=== PATIENT | male | born 1970 | race Two or more races ===

== ENCOUNTER 2021-09-26 18:38 | Inpatient (IN) | payer MEDICAID ==
[~2021-09-26] VITALS: Ht 172.7 cm; Wt 97.5 kg
[2021-09-26] MEDS ORDERED: ASPirin 81 mg TAB PO ONE (18:45)
[2021-09-26 19:45] LABS: Basophils # (auto) 0 10 ^3/uL (0-0.2); Basophils % (auto) 0.5 % (0.0-2.0); Eosinophils # (auto) 0.1 10 ^3/uL (0-0.8); Eosinophils % (auto) 1.6 % (0.0-7.0); Hematocrit 46.7 % (41.0-53.0); Hemoglobin 16.3 g/dL (13.5-17.5); Lymphocytes # (auto) 3.2 10 ^3/uL (0.4-5.4); Lymphocytes % (auto) 39.2 % (10.0-50.0); Mean Corpuscular Hgb Conc. 34.8 g/dL (32.0-36.0); Mean Corpuscular Volume 86.1 fL (80.0-100.0); Monocytes # (auto) 0.7 10 ^3/uL (0-1.3); Monocytes % (auto) 8.6 % (0.0-12.0); Neutrophils # (auto) 4.1 10 ^3/uL (1.6-8.6); Neutrophils % (auto) 50.1 % (37.0-80.0); Nucleated Red Blood Cells % 0.3 %; Red Blood Cells 5.43 10^6/uL (4.5-5.90); Red Cell Distribution Width 13.8 % (11.8-14.3); White Blood Cell 8.3 10^3/uL (4.4-10.8)
[2021-09-26 20:04] LABS: Albumin 3.6 g/dL (3.4-5.0); BUN/Creatinine Ratio 23.3; Calcium 8.6 mg/dL (8.5-10.1); Magnesium 2.6 mg/dL (1.6-2.6); Potassium 3.7 mmol/L (3.5-5.1)
[2021-09-26 20:07] LABS: Bilirubin, Total 0.2 mg/dL (0.2-1.0); Total Protein 7.1 g/dL (6.4-8.2)
[2021-09-26] MEDS ORDERED: ONDANSETRON HCL 4 MG/2 ML VIAL IV PRN (21:30)
[2021-09-26] MEDS ORDERED: MORPHINE SULFATE INJECTION 2 MG/ML SYRG IV PRN (21:30)
[2021-09-26] MEDS ORDERED: NITROGLYCERIN 0.4 MG SL TAB SL PRN (21:30)
[2021-09-27 05:08] VITALS: BP 112/70
[2021-09-27 05:19] VITALS: BP 112/77
[2021-09-27 08:00] VITALS: BP 130/81
[2021-09-27 12:00] VITALS: BP 137/92
[2021-09-27] MEDS ORDERED: ASPirin 81 mg TAB PO ONE (12:30)
[2021-09-27] MEDS ORDERED: LISINOPRIL 20 MG TAB PO ONE (12:30)
[2021-09-27] MEDS ORDERED: METOPROLOL TARTRATE 50 MG TAB PO ONE (12:30)
[2021-09-27 16:00] VITALS: BP 113/60
[2021-09-27 22:00] VITALS: BP 114/78
[2021-09-27] MEDS: ATORVASTATIN 20 MG TAB PO SCH (22:00)
[2021-09-27] MEDS: METOPROLOL TARTRATE 50 MG TAB PO SCH (22:01)
[2021-09-28 05:00] VITALS: BP 91/66
[2021-09-28] MEDS ORDERED: GLUCAGON HYDROCHLORIDE (RDNA) 1 MG VIAL IV ONE ×2 (05:15)
[2021-09-28 09:00] VITALS: BP 91/64
[2021-09-28] MEDS: ASPirin 81 mg TAB PO SCH (09:27)
[2021-09-28] MEDS: LISINOPRIL 20 MG TAB PO SCH (09:37)
[2021-09-28] MEDS: METOPROLOL TARTRATE 50 MG TAB PO SCH (09:37)
[2021-09-28] MEDS: METOPROLOL TARTRATE 25 MG TAB PO SCH ×2 (10:30→21:34)
[2021-09-28 12:12] LABS: Alcohol, Urine < 3.0 mg/dL (0-10); Amphetamine Screen, Urine NEGATIVE (NEGATIVE); Barbiturate Scree,Urine NEGATIVE (NEGATIVE); Benzodiazephine Screen, Urine NEGATIVE (NEGATIVE); Cannabinoid Screen, Urine NEGATIVE (NEGATIVE); Cocaine Screen, Urine NEGATIVE (NEGATIVE); Opiate Scree,Urine NEGATIVE (NEGATIVE); Phencyclidine Screen, Urine NEGATIVE (NEGATIVE)
[2021-09-28 12:16] LABS: Urine Bacteria NONE SEEN /hpf (None Seen); Urine Blood Negative /uL (Negative); Urine Mucus FEW (None Seen); Urine Specific Gravity 1.026 (1.001-1.035); Urine WBC 1 /hpf (0 - 3)
[2021-09-28 13:00] VITALS: BP 104/65
[2021-09-28 13:28] LABS: Cholesterol 179 mg/dL (< 200); HDL Cholesterol 38 mg/dL (40-59); LDL Cholesterol 113 mg/dL (< 100); Triglycerides 182 mg/dL (< 150)
[2021-09-28 17:00] VITALS: BP 125/77
[2021-09-28] MEDS: DOCUSATE SOD 100 MG CAP PO PRN (21:33)
[2021-09-28] MEDS: ATORVASTATIN 20 MG TAB PO SCH (21:33)
[2021-09-28 22:00] VITALS: BP 122/73
[2021-09-29 05:00] VITALS: BP 95/61
[2021-09-29 08:30] VITALS: BP 126/83
[2021-09-29] MEDS: ASPirin 81 mg TAB PO SCH (09:26)
[2021-09-29] MEDS: METOPROLOL TARTRATE 25 MG TAB PO SCH ×2 (09:27→21:51)
[2021-09-29] MEDS: LISINOPRIL 20 MG TAB PO SCH (09:28)
[2021-09-29 12:45] VITALS: BP 121/83
[2021-09-29 16:40] VITALS: BP 116/80
[2021-09-29] MEDS ORDERED: AMIODARONE HCL 150 MG in D5W 5% 100 ML IV ONE (18:45)
[2021-09-29] MEDS ORDERED: AMIODARONE 450mg/250ml AE 250 ML IV SCH (19:00)
[2021-09-29 21:18] LABS: Basophils # (auto) 0 10 ^3/uL (0-0.2); Basophils % (auto) 0.4 % (0.0-2.0); Eosinophils # (auto) 0.2 10 ^3/uL (0-0.8); Eosinophils % (auto) 2.1 % (0.0-7.0); Hematocrit 46.9 % (41.0-53.0); Hemoglobin 15.8 g/dL (13.5-17.5); Lymphocytes # (auto) 3.2 10 ^3/uL (0.4-5.4); Lymphocytes % (auto) 43.6 % (10.0-50.0); Mean Corpuscular Hemoglobin 29.1 pg (28.0-32.0); Mean Corpuscular Hgb Conc. 33.7 g/dL (32.0-36.0); Mean Corpuscular Volume 86.4 fL (80.0-100.0); Monocytes # (auto) 0.5 10 ^3/uL (0-1.3); Monocytes % (auto) 7.3 % (0.0-12.0); Neutrophils # (auto) 3.4 10 ^3/uL (1.6-8.6); Neutrophils % (auto) 46.6 % (37.0-80.0); Nucleated Red Blood Cells % 0.1 %; Red Blood Cells 5.43 10^6/uL (4.5-5.90); Red Cell Distribution Width 13.6 % (11.8-14.3); White Blood Cell 7.3 10^3/uL (4.4-10.8)
[2021-09-29] MEDS: ATORVASTATIN 20 MG TAB PO SCH (21:28)
[2021-09-29] MEDS: DOCUSATE SOD 100 MG CAP PO PRN (21:29)
[2021-09-29 21:35] LABS: BUN/Creatinine Ratio 15.7; Calcium 8.8 mg/dL (8.5-10.1)
[2021-09-29 22:00] VITALS: BP 118/78
[2021-09-30] MEDS ORDERED: AMIODARONE 450mg/250ml AE 250 ML IV SCH (01:00)
[2021-09-30 05:00] VITALS: BP 102/61
[2021-09-30 09:00] VITALS: BP 110/68
[2021-09-30] MEDS: ASPirin 81 mg TAB PO SCH (10:00)
[2021-09-30] MEDS: METOPROLOL TARTRATE 25 MG TAB PO SCH (10:00)
[2021-09-30] MEDS: LISINOPRIL 20 MG TAB PO SCH (10:00)
[2021-09-30] MEDS ORDERED: fentaNYL CITRATE 100 MCG/2 ML VL ONE (15:15)
[2021-09-30] MEDS ORDERED: ANGIOMAX 250 MG VIAL IV ONE (15:15)
[2021-09-30] MEDS ORDERED: SODIUM CHL 0.9% 0 ML ONE (15:16)
[2021-09-30] MEDS ORDERED: MIDAZOLAM HCL 2MG/2ML 2ml VIAL (1mg/ml) ONE (15:16)
[2021-09-30] MEDS ORDERED: IODIXANOL 320MG/ML 100ML BTL IV ONE (15:19)
[2021-09-30] MEDS ORDERED: LIDOCAINE 2%HCL (LOCAL ANESTH.) INJ 10ml MDV ONE (15:19)
[2021-09-30] MEDS ORDERED: ATROPINE SULF 1 MG/10ml SYR ONE (15:42)
[2021-09-30 17:00] VITALS: BP 111/66
[2021-09-30] MEDS: ATORVASTATIN 20 MG TAB PO SCH (22:11)
[2021-09-30] MEDS: DOCUSATE SOD 100 MG CAP PO PRN (22:26)
[2021-10-01] VITALS (9 sets, daily range): BP systolic 108–129; BP diastolic 67–88
[2021-10-01] MEDS: guaiFENesin-DM 100/10mg/5ml SYR PO PRN ×2 (04:13→11:24)
[2021-10-01 05:32] LABS: Basophils # (auto) 0 10 ^3/uL (0-0.2); Basophils % (auto) 0.4 % (0.0-2.0); Eosinophils # (auto) 0.1 10 ^3/uL (0-0.8); Eosinophils % (auto) 1.4 % (0.0-7.0); Hematocrit 44.8 % (41.0-53.0); Hemoglobin 15.5 g/dL (13.5-17.5); Lymphocytes # (auto) 2.1 10 ^3/uL (0.4-5.4); Lymphocytes % (auto) 27.2 % (10.0-50.0); Mean Corpuscular Hemoglobin 29.4 pg (28.0-32.0); Mean Corpuscular Hgb Conc. 34.6 g/dL (32.0-36.0); Monocytes # (auto) 0.7 10 ^3/uL (0-1.3); Monocytes % (auto) 8.8 % (0.0-12.0); Neutrophils # (auto) 4.8 10 ^3/uL (1.6-8.6); Neutrophils % (auto) 62.2 % (37.0-80.0); Nucleated Red Blood Cells % 0.1 %; Red Blood Cells 5.27 10^6/uL (4.5-5.90); Red Cell Distribution Width 13.5 % (11.8-14.3); White Blood Cell 7.7 10^3/uL (4.4-10.8)
[2021-10-01 05:45] LABS: INR 1.04 (0.9-1.15); Partial Thromboplastin Time 26.8 sec (23.6-33.0)
[2021-10-01 05:50] LABS: Potassium 4.1 mmol/L (3.5-5.1)
[2021-10-01 05:56] LABS: Albumin 3.3 g/dL (3.4-5.0); Bilirubin, Total 0.9 mg/dL (0.2-1.0); Calcium 8.9 mg/dL (8.5-10.1); Total Protein 6.6 g/dL (6.4-8.2)
[2021-10-01] MEDS: METOPROLOL TARTRATE 25 MG TAB PO SCH (10:00)
[2021-10-01] MEDS: ASPirin 81 mg TAB PO SCH (10:00)
[2021-10-01] MEDS ORDERED: VANCOMYCIN HCL 1000 MG VL ONE (12:10)
[2021-10-01] MEDS ORDERED: fentaNYL CITRATE 100 MCG/2 ML VL ONE (12:10)
[2021-10-01] MEDS ORDERED: MIDAZOLAM HCL 2MG/2ML 2ml VIAL (1mg/ml) ONE (12:11)
[2021-10-01] MEDS ORDERED: VANCOMYCIN 1GM/250ML 250 ML IV ONE (12:13)
[2021-10-01] MEDS ORDERED: LIDOCAINE 2%HCL (LOCAL ANESTH.) INJ 10ml MDV ONE ×3 (12:23→13:10)
[2021-10-01] MEDS: HYDROcodone-ACET 5/325MG TAB PO PRN (19:42)
[2021-10-01] MEDS: ATORVASTATIN 20 MG TAB PO SCH (22:28)
[2021-10-01] MEDS: VANCOMYCIN 1GM/250ML 250 ML IV SCH (22:29)
[2021-10-02 05:00] VITALS: BP 123/70
[2021-10-02] MEDS: HYDROcodone-ACET 5/325MG TAB PO PRN (05:15)
[2021-10-02 09:00] VITALS: BP 102/60
[2021-10-02] MEDS: VANCOMYCIN 1GM/250ML 250 ML IV SCH (09:54)
[2021-10-02] MEDS: ASPirin 81 mg TAB PO SCH (09:54)
[2021-10-02] MEDS: METOPROLOL TARTRATE 25 MG TAB PO SCH (09:55)
[2021-10-02] MEDS ORDERED: ASPI81CH74 PO (11:40)
[2021-10-02] MEDS ORDERED: METO25TA5 PO (11:40)
[2021-10-02] MEDS ORDERED: ATO40T PO (11:40)
[2021-10-02 13:00] VITALS: BP 121/78
[2021-10-02 16:09] VITALS: BP 121/78
== END 2021-10-02 18:27 | disposition home or self-care (01) | DRG 242 ==
LOC: ER 18:38 → EDBD 18:38 → TELE 21:27 → TELE-WESTW 22:58
PROVIDERS: ADMIT Internal Medicine; ATTEND Family Medicine
PROC: 0JH606Z Insertion of Pacemaker, Dual Chamber into Chest Subcutaneous Tissue and Fascia, Open Approach (ICD-10-PCS; principal; 2021-10-01)
PROC: 02HK3JZ Insertion of Pacemaker Lead into Right Ventricle, Percutaneous Approach (ICD-10-PCS; 2021-10-01)
PROC: 02H63JZ Insertion of Pacemaker Lead into Right Atrium, Percutaneous Approach (ICD-10-PCS; 2021-10-01)
PROC: 4A023N7 Measurement of Cardiac Sampling and Pressure, Left Heart, Percutaneous Approach (ICD-10-PCS; 2021-10-01)
PROC: B211YZZ Fluoroscopy of Multiple Coronary Arteries using Other Contrast (ICD-10-PCS; 2021-10-01)
PROC: B41CYZZ Fluoroscopy of Pelvic Arteries using Other Contrast (ICD-10-PCS; 2021-10-01)
PROC: B215YZZ Fluoroscopy of Left Heart using Other Contrast (ICD-10-PCS; 2021-10-01)
DX: I49.5 Sick sinus syndrome (principal); I21.4 Non-ST elevation (NSTEMI) myocardial infarction; I47.1 Supraventricular tachycardia; E78.5 Hyperlipidemia, unspecified; I10 Essential (primary) hypertension; I95.9 Hypotension, unspecified; R55 Syncope and collapse; Z20.822 Contact with and (suspected) exposure to COVID-19; Z83.3 Family history of diabetes mellitus; Z88.0 Allergy status to penicillin
CPT/HCPCS: 36415; 71045; 80048; 80053; 80061; 80307; 81001; 83735; 84443; 84484; 85025; 85610; 85730; 86850; 86900; 86901; 93005; 93306; 99152; 99153; C1785; G0378; J2001; J2250; J7060; Q9967

== ENCOUNTER 2021-10-15 21:27 | Emergency (ER) | payer MEDICAID, OTHER ==
[~2021-10-15] VITALS: Ht 172.7 cm; Wt 95.3 kg
[~2021-10-15 21:27] MED LIST: ASPI81CH74 PO; ATO40T PO; METO25TA5 PO
[2021-10-15 23:04] LABS: Basophils # (auto) 0 10 ^3/uL (0-0.2); Basophils % (auto) 0.4 % (0.0-2.0); Eosinophils # (auto) 0.1 10 ^3/uL (0-0.8); Eosinophils % (auto) 2.1 % (0.0-7.0); Hematocrit 44.7 % (41.0-53.0); Hemoglobin 15.5 g/dL (13.5-17.5); Lymphocytes # (auto) 0.5 10 ^3/uL (0.4-5.4); Lymphocytes % (auto) 7.6 % (10.0-50.0); Mean Corpuscular Hemoglobin 29.8 pg (28.0-32.0); Mean Corpuscular Hgb Conc. 34.8 g/dL (32.0-36.0); Mean Corpuscular Volume 85.6 fL (80.0-100.0); Monocytes # (auto) 0.7 10 ^3/uL (0-1.3); Monocytes % (auto) 9.7 % (0.0-12.0); Neutrophils # (auto) 5.4 10 ^3/uL (1.6-8.6); Neutrophils % (auto) 80.2 % (37.0-80.0); Nucleated Red Blood Cells % 0.1 %; Red Blood Cells 5.22 10^6/uL (4.5-5.90); Red Cell Distribution Width 13.8 % (11.8-14.3); White Blood Cell 6.7 10^3/uL (4.4-10.8)
[2021-10-15 23:35] LABS: Calcium 8.8 mg/dL (8.5-10.1); Potassium 4.4 mmol/L (3.5-5.1)
[2021-10-15 23:41] LABS: Albumin 3.9 g/dL (3.4-5.0); BUN/Creatinine Ratio 22.4; Bilirubin, Total 0.4 mg/dL (0.2-1.0); Total Protein 7.6 g/dL (6.4-8.2)
[2021-10-16 03:19] VITALS: BP 119/88
== END 2021-10-16 03:19 | disposition home or self-care (01) ==
LOC: ER 21:27
DX: R10.11 Right upper quadrant pain (principal); R10.31 Right lower quadrant pain; E78.5 Hyperlipidemia, unspecified; Z79.82 Long term (current) use of aspirin; Z79.899 Other long term (current) drug therapy; Z88.0 Allergy status to penicillin
CPT/HCPCS: 36415; 71045; 74176; 76870; 80053; 84484; 85025; 93005

== ENCOUNTER 2021-11-04 16:33 | Inpatient (IN) | payer OTHER, MEDICAID ==
[~2021-11-04] VITALS: Ht 172.7 cm; Wt 98.7 kg
[2021-11-04] MEDS ORDERED: ASPirin 81 mg TAB PO ONE (16:45)
[2021-11-04 18:07] LABS: Basophils # (auto) 0 10 ^3/uL (0-0.2); Basophils % (auto) 0.6 % (0.0-2.0); Eosinophils # (auto) 0.2 10 ^3/uL (0-0.8); Eosinophils % (auto) 2.7 % (0.0-7.0); Hematocrit 42.8 % (41.0-53.0); Hemoglobin 14.6 g/dL (13.5-17.5); Lymphocytes # (auto) 2.2 10 ^3/uL (0.4-5.4); Lymphocytes % (auto) 37.4 % (10.0-50.0); Mean Corpuscular Hemoglobin 29.1 pg (28.0-32.0); Mean Corpuscular Hgb Conc. 34.2 g/dL (32.0-36.0); Mean Corpuscular Volume 85.2 fL (80.0-100.0); Monocytes # (auto) 0.5 10 ^3/uL (0-1.3); Monocytes % (auto) 8.2 % (0.0-12.0); Neutrophils % (auto) 51.1 % (37.0-80.0); Nucleated Red Blood Cells % 0.4 %; Red Blood Cells 5.03 10^6/uL (4.5-5.90); Red Cell Distribution Width 13.8 % (11.8-14.3); White Blood Cell 5.8 10^3/uL (4.4-10.8)
[2021-11-04 18:08] LABS: Albumin 3.8 g/dL (3.4-5.0); Calcium 8.9 mg/dL (8.5-10.1); Potassium 3.8 mmol/L (3.5-5.1)
[2021-11-04 18:11] LABS: BUN/Creatinine Ratio 18.2; Bilirubin, Total 0.3 mg/dL (0.2-1.0); Total Protein 7.5 g/dL (6.4-8.2)
[2021-11-05] MEDS ORDERED: MORPHINE SULFATE INJ 2 MG/ml SYRG IV PRN ×2 (10:45→11:30)
[2021-11-05] MEDS ORDERED: NITROGLYCERIN 0.4 MG SL TAB SL PRN (10:45)
[2021-11-05] MEDS ORDERED: LORazepam 0.5 MG TAB PO PRN (11:30)
[2021-11-05] MEDS ORDERED: hydrALAZINE HCL 20 MG/ML VL IV PRN (11:30)
[2021-11-05] MEDS ORDERED: HYDROcodone-ACET 5/325MG TAB PO PRN (11:30)
[2021-11-05] MEDS ORDERED: DOCUSATE SOD 100 MG CAP PO PRN (11:30)
[2021-11-05] MEDS ORDERED: ACETAMINOPHEN 325 MG TAB PO PRN (11:30)
[2021-11-05] MEDS ORDERED: ONDANSETRON HCL 4 MG/2 ML VIAL IV PRN (11:30)
[2021-11-05] MEDS ORDERED: METOPROLOL TARTRATE 1MG/1ML-5ML VIAL IV PRN (11:45)
[2021-11-05] MEDS: SODIUM CHLORIDE 0.9% 1,000 ML IV SCH (12:03)
[2021-11-05 12:59] LABS: Magnesium 2.6 mg/dL (1.6-2.6); Phosphorus 3.4 mg/dL (2.5-4.90)
[2021-11-05 23:02] VITALS: BP 107/83
[2021-11-06 05:00] VITALS: BP 101/67
[2021-11-06 06:22] LABS: Basophils # (auto) 0 10 ^3/uL (0-0.2); Basophils % (auto) 0.3 % (0.0-2.0); Eosinophils # (auto) 0.2 10 ^3/uL (0-0.8); Eosinophils % (auto) 2.8 % (0.0-7.0); Hematocrit 41.8 % (41.0-53.0); Hemoglobin 14.4 g/dL (13.5-17.5); Lymphocytes # (auto) 2.1 10 ^3/uL (0.4-5.4); Lymphocytes % (auto) 35.7 % (10.0-50.0); Mean Corpuscular Hemoglobin 29.6 pg (28.0-32.0); Mean Corpuscular Hgb Conc. 34.6 g/dL (32.0-36.0); Mean Corpuscular Volume 85.6 fL (80.0-100.0); Monocytes # (auto) 0.6 10 ^3/uL (0-1.3); Monocytes % (auto) 10.1 % (0.0-12.0); Neutrophils % (auto) 51.1 % (37.0-80.0); Nucleated Red Blood Cells % 0.2 %; Red Blood Cells 4.88 10^6/uL (4.5-5.90); Red Cell Distribution Width 13.7 % (11.8-14.3); White Blood Cell 5.8 10^3/uL (4.4-10.8)
[2021-11-06 06:30] LABS: Potassium 4.1 mmol/L (3.5-5.1)
[2021-11-06 06:42] LABS: Albumin 3.2 g/dL (3.4-5.0); BUN/Creatinine Ratio 17.2; Bilirubin, Total 0.5 mg/dL (0.2-1.0); CRP High Sensitivity 0.24 mg/dL (< 0.3); Calcium 8.6 mg/dL (8.5-10.1); Magnesium 2.1 mg/dL (1.6-2.6); Phosphorus 3.4 mg/dL (2.5-4.90); Total Protein 6.3 g/dL (6.4-8.2); Uric Acid 6.1 mg/dL (3.5-7.2)
[2021-11-06 06:44] LABS: INR 1.03 (0.9-1.15)
[2021-11-06 06:53] LABS: Thyroid Stimulating Hormone 0.75 uIU/mL (0.358-3.74)
[2021-11-06 08:00] VITALS: BP 127/95
[2021-11-06] MEDS: ASPirin 81 mg TAB PO SCH (08:29)
[2021-11-06] MEDS: FAMOTIDINE (10MG/ML) 2ML VL IV SCH (08:30)
[2021-11-06] MEDS: ENOXAPARIN SOD 40 MG/0.4 ML SYRINGE SC SCH (08:30)
[2021-11-06] MEDS ORDERED: VANCOMYCIN PER PHARMACY 0 MG IV SCH (11:45)
[2021-11-06 12:37] LABS: Urine Bacteria NONE SEEN /hpf (None Seen); Urine Blood Negative /uL (Negative); Urine Specific Gravity 1.011 (1.001-1.035); Urine WBC <1 /hpf (0 - 3)
[2021-11-06 12:42] VITALS: BP 112/85
[2021-11-06 12:45] LABS: Alcohol, Urine < 3.0 mg/dL (0-10); Amphetamine Screen, Urine NEGATIVE (NEGATIVE); Barbiturate Scree,Urine NEGATIVE (NEGATIVE); Benzodiazephine Screen, Urine NEGATIVE (NEGATIVE); Cannabinoid Screen, Urine NEGATIVE (NEGATIVE); Cocaine Screen, Urine NEGATIVE (NEGATIVE); Opiate Scree,Urine NEGATIVE (NEGATIVE); Phencyclidine Screen, Urine NEGATIVE (NEGATIVE); Protein, Urine 6.7 mg/dL (0.0-11.9)
[2021-11-06] MEDS: SODIUM CHLORIDE 0.9% 1,000 ML IV SCH ×2 (13:30→22:34)
[2021-11-06] MEDS: VANCOMYCIN 1GM/250ML 250 ML IV SCH ×2 (14:27→22:22)
[2021-11-06 17:00] VITALS: BP 131/80
[2021-11-06 22:00] VITALS: BP 113/77
[2021-11-06] MEDS: ATORVASTATIN 20 MG TAB PO SCH ×2 (22:22)
[2021-11-07 05:00] VITALS: BP 100/64
[2021-11-07 05:18] LABS: Basophils # (auto) 0 10 ^3/uL (0-0.2); Basophils % (auto) 0.7 % (0.0-2.0); Eosinophils # (auto) 0.2 10 ^3/uL (0-0.8); Eosinophils % (auto) 3.5 % (0.0-7.0); Hematocrit 40.7 % (41.0-53.0); Hemoglobin 14.1 g/dL (13.5-17.5); Lymphocytes # (auto) 1.9 10 ^3/uL (0.4-5.4); Lymphocytes % (auto) 33.9 % (10.0-50.0); Mean Corpuscular Hemoglobin 29.5 pg (28.0-32.0); Mean Corpuscular Hgb Conc. 34.7 g/dL (32.0-36.0); Mean Corpuscular Volume 85.1 fL (80.0-100.0); Monocytes # (auto) 0.5 10 ^3/uL (0-1.3); Monocytes % (auto) 9.3 % (0.0-12.0); Neutrophils # (auto) 2.9 10 ^3/uL (1.6-8.6); Neutrophils % (auto) 52.6 % (37.0-80.0); Nucleated Red Blood Cells % 0.1 %; Red Blood Cells 4.78 10^6/uL (4.5-5.90); Red Cell Distribution Width 13.5 % (11.8-14.3); White Blood Cell 5.6 10^3/uL (4.4-10.8)
[2021-11-07 05:28] LABS: Calcium 8.2 mg/dL (8.5-10.1); Potassium 3.9 mmol/L (3.5-5.1)
[2021-11-07 05:30] LABS: BUN/Creatinine Ratio 12.5
[2021-11-07] MEDS: VANCOMYCIN 1GM/250ML 250 ML IV SCH (05:49)
[2021-11-07 09:30] VITALS: BP 111/73
[2021-11-07] MEDS: FAMOTIDINE (10MG/ML) 2ML VL IV SCH (10:00)
[2021-11-07] MEDS: ASPirin 81 mg TAB PO SCH (10:05)
[2021-11-07] MEDS: ENOXAPARIN SOD 40 MG/0.4 ML SYRINGE SC SCH (10:06)
[2021-11-07] MEDS: SODIUM CHLORIDE 0.9% 1,000 ML IV SCH (12:10)
[2021-11-07 12:14] VITALS: BP 111/73
== END 2021-11-07 12:40 | disposition home or self-care (01) | DRG 872 ==
LOC: ER 16:33 → TELE 11-05 10:40 → TELE-WESTW 11-05 22:17
PROVIDERS: ADMIT Hospitalist; ATTEND Internal Medicine Pulmonary Disease
DX: A41.89 Other specified sepsis (principal); I24.9 Acute ischemic heart disease, unspecified; R00.2 Palpitations; I49.5 Sick sinus syndrome; E78.5 Hyperlipidemia, unspecified; Z20.822 Contact with and (suspected) exposure to COVID-19; E66.01 Morbid (severe) obesity due to excess calories; Z68.33 Body mass index [BMI] 33.0-33.9, adult; Z79.899 Other long term (current) drug therapy; Z83.3 Family history of diabetes mellitus; Z95.0 Presence of cardiac pacemaker; Z88.0 Allergy status to penicillin
CPT/HCPCS: 36415; 71045; 80048; 80053; 80061; 80307; 81001; 82550; 82728; 83036; 83615; 83690; 83735; 83880; 84100; 84156; 84439; 84443; 84484; 84550; 85025; 85379; 85610; 85652; 85730; 86141; 87040; 87077; 87086; 87186; 93005; 96360; G0378

== ENCOUNTER 2021-11-10 23:19 | Inpatient (IN) | payer OTHER, MEDICAID ==
[~2021-11-10] VITALS: Ht 172.7 cm; Wt 101.3 kg
[~2021-11-10 23:19] MED LIST changes: -ATO40T PO; -METO25TA5 PO
[2021-11-10] MEDS ORDERED: dilTIAZem 125mg/125ml BAG KIT 125 ML IV ONE (23:30)
[2021-11-10] MEDS ORDERED: ASPirin 81 mg TAB PO ONE (23:30)
[2021-11-10] MEDS ORDERED: dilTIAZem 25 MG/5 ML VIAL IV ONE (23:30)
[2021-11-11 00:08] LABS: Basophils # (auto) 0 10 ^3/uL (0-0.2); Basophils % (auto) 0.4 % (0.0-2.0); Eosinophils # (auto) 0.2 10 ^3/uL (0-0.8); Eosinophils % (auto) 2.8 % (0.0-7.0); Hematocrit 47.4 % (41.0-53.0); Hemoglobin 16.3 g/dL (13.5-17.5); Lymphocytes # (auto) 3.1 10 ^3/uL (0.4-5.4); Lymphocytes % (auto) 43.9 % (10.0-50.0); Mean Corpuscular Hemoglobin 29.7 pg (28.0-32.0); Mean Corpuscular Hgb Conc. 34.4 g/dL (32.0-36.0); Mean Corpuscular Volume 86.2 fL (80.0-100.0); Monocytes # (auto) 0.8 10 ^3/uL (0-1.3); Monocytes % (auto) 11.8 % (0.0-12.0); Neutrophils # (auto) 2.9 10 ^3/uL (1.6-8.6); Neutrophils % (auto) 41.1 % (37.0-80.0); Nucleated Red Blood Cells % 0.3 %; Red Cell Distribution Width 13.8 % (11.8-14.3); White Blood Cell 7.1 10^3/uL (4.4-10.8)
[2021-11-11 00:42] LABS: Albumin 4.3 g/dL (3.4-5.0); Calcium 9.2 mg/dL (8.5-10.1); Potassium 3.7 mmol/L (3.5-5.1)
[2021-11-11 00:47] LABS: Bilirubin, Total 0.4 mg/dL (0.2-1.0); Total Protein 7.9 g/dL (6.4-8.2)
[2021-11-11] MEDS ORDERED: ONDANSETRON HCL 4 MG/2 ML VIAL IV PRN (03:00)
[2021-11-11] MEDS ORDERED: NITROGLYCERIN 0.4 MG SL TAB SL PRN (03:00)
[2021-11-11] MEDS ORDERED: MORPHINE SULFATE INJ 2 MG/ml SYRG IV PRN (03:00)
[2021-11-11] MEDS ORDERED: TEMAZEPAM 15 MG CAP PO PRN (03:00)
[2021-11-11] MEDS ORDERED: ACETAMINOPHEN 325 MG TAB PO PRN (03:00)
[2021-11-11 06:33] LABS: Alcohol, Urine < 3.0 mg/dL (0-10); Amphetamine Screen, Urine NEGATIVE (NEGATIVE); Barbiturate Scree,Urine NEGATIVE (NEGATIVE); Benzodiazephine Screen, Urine NEGATIVE (NEGATIVE); Cannabinoid Screen, Urine NEGATIVE (NEGATIVE); Cocaine Screen, Urine NEGATIVE (NEGATIVE); Opiate Scree,Urine NEGATIVE (NEGATIVE); Phencyclidine Screen, Urine NEGATIVE (NEGATIVE)
[2021-11-11] MEDS: SODIUM CHLORIDE 0.9% 1,000 ML IV SCH ×2 (08:24→20:34)
[2021-11-11 09:05] LABS: BUN/Creatinine Ratio 27.8; Calcium 8.6 mg/dL (8.5-10.1); Magnesium 2.8 mg/dL (1.6-2.6)
[2021-11-11] MEDS: ASPirin 81 mg TAB PO SCH (10:40)
[2021-11-11] MEDS: ENOXAPARIN SOD 40 MG/0.4 ML SYRINGE SC SCH (10:40)
[2021-11-11] MEDS: METOPROLOL TARTRATE 25 MG TAB PO SCH ×2 (10:40→22:00)
[2021-11-11] MEDS: ATORVASTATIN 20 MG TAB PO SCH (23:06)
[2021-11-12 04:14] LABS: Basophils # (auto) 0 10 ^3/uL (0-0.2); Basophils % (auto) 0.4 % (0.0-2.0); Eosinophils # (auto) 0.2 10 ^3/uL (0-0.8); Eosinophils % (auto) 2.8 % (0.0-7.0); Hematocrit 41.4 % (41.0-53.0); Hemoglobin 14.3 g/dL (13.5-17.5); Lymphocytes # (auto) 2.2 10 ^3/uL (0.4-5.4); Lymphocytes % (auto) 37.6 % (10.0-50.0); Mean Corpuscular Hemoglobin 29.6 pg (28.0-32.0); Mean Corpuscular Hgb Conc. 34.5 g/dL (32.0-36.0); Mean Corpuscular Volume 85.7 fL (80.0-100.0); Monocytes # (auto) 0.6 10 ^3/uL (0-1.3); Monocytes % (auto) 10.9 % (0.0-12.0); Neutrophils # (auto) 2.8 10 ^3/uL (1.6-8.6); Neutrophils % (auto) 48.3 % (37.0-80.0); Nucleated Red Blood Cells % 0.1 %; Red Blood Cells 4.83 10^6/uL (4.5-5.90); Red Cell Distribution Width 13.8 % (11.8-14.3); White Blood Cell 5.8 10^3/uL (4.4-10.8)
[2021-11-12 04:37] LABS: BUN/Creatinine Ratio 20.7; Calcium 8.2 mg/dL (8.5-10.1); Potassium 4.2 mmol/L (3.5-5.1)
[2021-11-12 05:00] VITALS: BP 112/70
[2021-11-12 09:00] VITALS: BP 130/74
[2021-11-12] MEDS: ASPirin 81 mg TAB PO SCH (09:48)
[2021-11-12] MEDS: ENOXAPARIN SOD 40 MG/0.4 ML SYRINGE SC SCH (09:48)
[2021-11-12] MEDS: METOPROLOL TARTRATE 25 MG TAB PO SCH ×2 (10:00→22:00)
[2021-11-12 13:00] VITALS: BP 111/79
[2021-11-12] MEDS: SODIUM CHLORIDE 0.9% 1,000 ML IV SCH (13:45)
[2021-11-12 17:00] VITALS: BP 136/87
[2021-11-12 22:00] VITALS: BP 114/78
[2021-11-12] MEDS: ATORVASTATIN 20 MG TAB PO SCH (22:18)
[2021-11-12] MEDS: AMIODARONE HCL 200 MG TAB PO SCH (22:19)
[2021-11-13 04:51] VITALS: BP 108/64
[2021-11-13] MEDS: AMIODARONE HCL 200 MG TAB PO SCH ×2 (09:50→22:15)
[2021-11-13] MEDS: ASPirin 81 mg TAB PO SCH (09:50)
[2021-11-13] MEDS: METOPROLOL TARTRATE 25 MG TAB PO SCH ×2 (10:00→22:00)
[2021-11-13] MEDS: ENOXAPARIN SOD 40 MG/0.4 ML SYRINGE SC SCH (10:00)
[2021-11-13] MEDS: SODIUM CHLORIDE 0.9% 1,000 ML IV SCH (13:00)
[2021-11-13 13:09] VITALS: BP 113/79
[2021-11-13 17:00] VITALS: BP 122/85
[2021-11-13 22:00] VITALS: BP 121/88
[2021-11-13] MEDS: ATORVASTATIN 20 MG TAB PO SCH (22:15)
[2021-11-14 05:00] VITALS: BP 121/86
[2021-11-14 09:00] VITALS: BP 114/76
[2021-11-14] MEDS: ASPirin 81 mg TAB PO SCH (09:51)
[2021-11-14] MEDS: ENOXAPARIN SOD 40 MG/0.4 ML SYRINGE SC SCH (09:52)
[2021-11-14] MEDS: METOPROLOL TARTRATE 25 MG TAB PO SCH ×2 (09:52→21:33)
[2021-11-14] MEDS: AMIODARONE HCL 200 MG TAB PO SCH ×2 (09:52→21:32)
[2021-11-14 13:00] VITALS: BP 128/93
[2021-11-14] MEDS: SODIUM CHLORIDE 0.9% 1,000 ML IV SCH (13:00)
[2021-11-14 17:09] VITALS: BP 134/94
[2021-11-14] MEDS: ATORVASTATIN 20 MG TAB PO SCH (21:32)
[2021-11-14 22:00] VITALS: BP 115/83
[2021-11-15 05:00] VITALS: BP 133/80
[2021-11-15 09:26] VITALS: BP 126/85
[2021-11-15] MEDS: ASPirin 81 mg TAB PO SCH (09:47)
[2021-11-15] MEDS: METOPROLOL TARTRATE 25 MG TAB PO SCH (09:48)
[2021-11-15] MEDS: AMIODARONE HCL 200 MG TAB PO SCH (09:48)
[2021-11-15] MEDS: ENOXAPARIN SOD 40 MG/0.4 ML SYRINGE SC SCH (09:48)
[2021-11-15] MEDS ORDERED: ATOR20TA50 PO (11:37)
[2021-11-15] MEDS ORDERED: MET25T PO (11:37)
[2021-11-15] MEDS ORDERED: AMIO200T33 PO (11:38)
[2021-11-15 13:00] VITALS: BP 112/81
[2021-11-15 16:13] VITALS: BP 97/76
[2021-11-15 16:30] VITALS: BP 100/71
== END 2021-11-15 19:13 | disposition home or self-care (01) | DRG 281 ==
LOC: ER 23:19 → TELE 11-11 02:56 → TELE-CENTR 11-11 21:45
PROVIDERS: ADMIT Nurse Practitioner; ATTEND Internal Medicine
DX: I21.4 Non-ST elevation (NSTEMI) myocardial infarction (principal); I47.1 Supraventricular tachycardia; E66.9 Obesity, unspecified; E78.5 Hyperlipidemia, unspecified; Z83.3 Family history of diabetes mellitus; Z95.0 Presence of cardiac pacemaker; Z20.822 Contact with and (suspected) exposure to COVID-19; Z88.0 Allergy status to penicillin; Z68.32 Body mass index [BMI] 32.0-32.9, adult
CPT/HCPCS: 36415; 71045; 80048; 80053; 80307; 83735; 83880; 84443; 84484; 85025; 93005; 96360; 99291; G0378

== ENCOUNTER 2022-06-14 02:10 | Emergency (ER) | payer OTHER, MEDICAID ==
[~2022-06-14] VITALS: Ht 172.7 cm; Wt 97.4 kg
[~2022-06-14 02:10] MED LIST changes: +AMIO200T33 PO; +ATOR20TA50 PO; +MET25T PO
[2022-06-14 02:59] LABS: Basophils # (auto) 0 10 ^3/uL (0-0.2); Basophils % (auto) 0.5 % (0.0-2.0); Eosinophils # (auto) 0.2 10 ^3/uL (0-0.8); Eosinophils % (auto) 2.8 % (0.0-7.0); Hematocrit 48.7 % (41.0-53.0); Hemoglobin 16.4 g/dL (13.5-17.5); Lymphocytes # (auto) 2.6 10 ^3/uL (0.4-5.4); Lymphocytes % (auto) 39.1 % (10.0-50.0); Mean Corpuscular Hemoglobin 29.4 pg (28.0-32.0); Mean Corpuscular Hgb Conc. 33.6 g/dL (32.0-36.0); Mean Corpuscular Volume 87.4 fL (80.0-100.0); Monocytes # (auto) 0.7 10 ^3/uL (0-1.3); Monocytes % (auto) 10.6 % (0.0-12.0); Neutrophils # (auto) 3.1 10 ^3/uL (1.6-8.6); Nucleated Red Blood Cells % 0.1 %; Red Blood Cells 5.57 10^6/uL (4.5-5.90); Red Cell Distribution Width 13.3 % (11.8-14.3); White Blood Cell 6.5 10^3/uL (4.4-10.8)
[2022-06-14 03:15] LABS: INR 1.01 (0.9-1.15); Partial Thromboplastin Time 28.9 sec (24.6-33.4)
[2022-06-14 03:23] LABS: Calcium 9.4 mg/dL (8.5-10.1); Magnesium 2.2 mg/dL (1.6-2.6); Potassium 4.2 mmol/L (3.5-5.1)
[2022-06-14 03:25] LABS: BUN/Creatinine Ratio 22.7
[2022-06-14 03:28] LABS: Bilirubin, Total 0.6 mg/dL (0.2-1.0); Total Protein 7.4 g/dL (6.4-8.2)
[2022-06-14 03:51] LABS: Urine Bacteria NONE SEEN /hpf (None Seen); Urine Blood Negative /uL (Negative); Urine Mucus FEW (None Seen); Urine Specific Gravity 1.013 (1.001-1.035); Urine WBC <1 /hpf (0 - 3)
[2022-06-14 04:05] LABS: Amphetamine Screen, Urine NEGATIVE (NEGATIVE); Barbiturate Scree,Urine NEGATIVE (NEGATIVE); Benzodiazephine Screen, Urine NEGATIVE (NEGATIVE); Cannabinoid Screen, Urine NEGATIVE (NEGATIVE); Cocaine Screen, Urine NEGATIVE (NEGATIVE); Opiate Scree,Urine NEGATIVE (NEGATIVE); Phencyclidine Screen, Urine NEGATIVE (NEGATIVE)
[2022-06-14] MEDS ORDERED: DEX4T PO (05:20)
[2022-06-14] MEDS ORDERED: DOXY-286 PO (05:20)
[2022-06-14 05:38] VITALS: BP 108/69
== END 2022-06-14 05:39 | disposition home or self-care (01) ==
LOC: ER 02:10
DX: R00.2 Palpitations (principal); U09.9 Post COVID-19 condition, unspecified; E78.5 Hyperlipidemia, unspecified; Z88.0 Allergy status to penicillin; Z79.899 Other long term (current) drug therapy; Z98.890 Other specified postprocedural states
CPT/HCPCS: 36415; 71045; 80053; 80307; 81001; 83735; 83880; 84443; 84484; 85025; 85379; 85610; 85730; 93005

== ENCOUNTER 2022-08-11 09:25 | Emergency (ER) | payer OTHER, MEDICAID ==
[~2022-08-11] VITALS: Ht 172.7 cm; Wt 100.0 kg
[~2022-08-11 09:25] MED LIST changes: +DEX4T PO; +DOXY-286 PO
[2022-08-11 11:24] LABS: Basophils # (auto) 0.1 10 ^3/uL (0-0.2); Basophils % (auto) 1.1 % (0.0-2.0); Eosinophils # (auto) 0.1 10 ^3/uL (0-0.8); Eosinophils % (auto) 1.6 % (0.0-7.0); Hematocrit 47.2 % (41.0-53.0); Hemoglobin 16.2 g/dL (13.5-17.5); Lymphocytes # (auto) 1.9 10 ^3/uL (0.4-5.4); Lymphocytes % (auto) 35.7 % (10.0-50.0); Mean Corpuscular Hemoglobin 28.9 pg (28.0-32.0); Mean Corpuscular Hgb Conc. 34.3 g/dL (32.0-36.0); Mean Corpuscular Volume 84.3 fL (80.0-100.0); Monocytes # (auto) 0.4 10 ^3/uL (0-1.3); Monocytes % (auto) 7.9 % (0.0-12.0); Neutrophils # (auto) 2.8 10 ^3/uL (1.6-8.6); Neutrophils % (auto) 53.7 % (37.0-80.0); Nucleated Red Blood Cells % 0.9 %; White Blood Cell 5.2 10^3/uL (4.4-10.8)
[2022-08-11] MEDS ORDERED: TRAM-297 PO (12:45)
[2022-08-11 14:06] VITALS: BP 154/100
== END 2022-08-11 14:09 | disposition home or self-care (01) ==
LOC: ER 09:25
DX: M26.602 Left temporomandibular joint disorder, unspecified (principal); I10 Essential (primary) hypertension; E78.5 Hyperlipidemia, unspecified; Z88.0 Allergy status to penicillin
CPT/HCPCS: 36415; 70110; 85025; 85652

== ENCOUNTER 2022-09-17 13:10 | Emergency (ER) | payer OTHER, MEDICAID ==
[~2022-09-17] VITALS: Ht 172.7 cm; Wt 100.0 kg
[~2022-09-17 13:10] MED LIST changes: +TRAM-297 PO
[2022-09-17] MEDS ORDERED: ADENOSINE 6 MG/2 ML INJ IV ONE ×2 (13:13→13:15)
[2022-09-17 14:05] LABS: Basophils # (auto) 0 10 ^3/uL (0-0.2); Basophils % (auto) 0.5 % (0.0-2.0); Eosinophils # (auto) 0.1 10 ^3/uL (0-0.8); Eosinophils % (auto) 1.4 % (0.0-7.0); Hematocrit 48.1 % (41.0-53.0); Hemoglobin 16.2 g/dL (13.5-17.5); Lymphocytes # (auto) 2.2 10 ^3/uL (0.4-5.4); Lymphocytes % (auto) 31.5 % (10.0-50.0); Mean Corpuscular Hemoglobin 29.2 pg (28.0-32.0); Mean Corpuscular Hgb Conc. 33.7 g/dL (32.0-36.0); Mean Corpuscular Volume 86.5 fL (80.0-100.0); Monocytes # (auto) 0.4 10 ^3/uL (0-1.3); Monocytes % (auto) 6.2 % (0.0-12.0); Neutrophils # (auto) 4.2 10 ^3/uL (1.6-8.6); Neutrophils % (auto) 60.4 % (37.0-80.0); Nucleated Red Blood Cells % 0.2 %; Red Blood Cells 5.55 10^6/uL (4.5-5.90); Red Cell Distribution Width 14.2 % (11.8-14.3)
[2022-09-17 14:27] LABS: Potassium 3.6 mmol/L (3.5-5.1)
[2022-09-17 14:54] LABS: Albumin 3.8 g/dL (3.4-5.0); Calcium 8.8 mg/dL (8.5-10.1); Magnesium 2.2 mg/dL (1.6-2.6)
[2022-09-17 14:56] LABS: Bilirubin, Total 0.4 mg/dL (0.2-1.0); Total Protein 7.4 g/dL (6.4-8.2)
[2022-09-17 17:44] VITALS: BP 124/87
== END 2022-09-17 17:55 | disposition home or self-care (01) ==
LOC: ER 13:10
DX: I47.1 Supraventricular tachycardia (principal); E11.9 Type 2 diabetes mellitus without complications; E78.5 Hyperlipidemia, unspecified; I10 Essential (primary) hypertension; Z88.0 Allergy status to penicillin
CPT/HCPCS: 36415; 71045; 80053; 83735; 84484; 85025; 93005; 96374; J0153

== ENCOUNTER 2022-11-24 19:18 | Emergency (ER) | payer OTHER, MEDICAID | END 2022-11-24 19:32 | disposition left against medical advice (07) | LOC: ER 19:20 | DX: R06.02 Shortness of breath (principal); Z53.21 Procedure and treatment not carried out due to patient leaving prior to being seen by health care provider ==

== ENCOUNTER 2022-12-08 21:18 | Emergency (ER) | payer OTHER, MEDICAID ==
[~2022-12-08] VITALS: Ht 172.7 cm; Wt 97.7 kg
[2022-12-08 22:19] LABS: Basophils # (auto) 0 10 ^3/uL (0-0.2); Basophils % (auto) 0.6 % (0.0-2.0); Eosinophils # (auto) 0.2 10 ^3/uL (0-0.8); Hemoglobin 16.3 g/dL (13.5-17.5); Lymphocytes # (auto) 2.7 10 ^3/uL (0.4-5.4); Lymphocytes % (auto) 39.6 % (10.0-50.0); Mean Corpuscular Hemoglobin 29.2 pg (28.0-32.0); Mean Corpuscular Hgb Conc. 33.9 g/dL (32.0-36.0); Monocytes # (auto) 0.5 10 ^3/uL (0-1.3); Monocytes % (auto) 7.6 % (0.0-12.0); Neutrophils # (auto) 3.4 10 ^3/uL (1.6-8.6); Neutrophils % (auto) 49.2 % (37.0-80.0); Nucleated Red Blood Cells % 0.1 %; Red Blood Cells 5.59 10^6/uL (4.5-5.90); Red Cell Distribution Width 13.5 % (11.8-14.3); White Blood Cell 6.9 10^3/uL (4.4-10.8)
[2022-12-08 22:35] LABS: Partial Thromboplastin Time 29.6 SEC (24.5-34.5)
[2022-12-08 22:42] LABS: Potassium 3.8 mmol/L (3.5-5.1)
[2022-12-08 22:55] LABS: Albumin 3.6 g/dL (3.4-5.0); BUN/Creatinine Ratio 19.4 (10.0-20.0); Bilirubin, Total 0.3 mg/dL (0.2-1.0); Calcium 8.8 mg/dL (8.5-10.1); Magnesium 2.7 mg/dL (1.6-2.6); Total Protein 7.4 g/dL (6.4-8.2)
[2022-12-09 02:29] VITALS: BP 99/66
== END 2022-12-09 02:38 | disposition home or self-care (01) ==
LOC: ER 21:18
DX: R00.2 Palpitations (principal); I49.9 Cardiac arrhythmia, unspecified; E11.9 Type 2 diabetes mellitus without complications; E78.5 Hyperlipidemia, unspecified; I10 Essential (primary) hypertension; Z88.0 Allergy status to penicillin; Z95.0 Presence of cardiac pacemaker
CPT/HCPCS: 36415; 71045; 80053; 83735; 83880; 84484; 85025; 85610; 85730; 93005

== ENCOUNTER 2023-01-08 00:33 | Emergency (ER) | payer MEDICAID, OTHER ==
[~2023-01-08] VITALS: Ht 172.7 cm; Wt 99.7 kg
[2023-01-08 00:52] VITALS: TEMP 98.2
[2023-01-08] MEDS ORDERED: ADENOSINE 6 MG/2 ML INJ IV ONE ×2 (00:53→00:54)
[2023-01-08] MEDS ORDERED: SODIUM CHLORIDE 0.9% 1,000 ML IV ONE (01:00)
[2023-01-08 01:02] VITALS: PULSE 85; RESP 15; O2SAT 95
[2023-01-08 01:03] LABS: Basophils # (auto) 0 10 ^3/uL (0-0.2); Basophils % (auto) 0.3 % (0.0-2.0); Eosinophils # (auto) 0.2 10 ^3/uL (0-0.8); Eosinophils % (auto) 2.7 % (0.0-7.0); Hematocrit 48.8 % (41.0-53.0); Hemoglobin 16.3 g/dL (13.5-17.5); Lymphocytes # (auto) 3.6 10 ^3/uL (0.4-5.4); Lymphocytes % (auto) 41.5 % (10.0-50.0); Mean Corpuscular Hemoglobin 29.2 pg (28.0-32.0); Mean Corpuscular Hgb Conc. 33.5 g/dL (32.0-36.0); Mean Corpuscular Volume 87.2 fL (80.0-100.0); Monocytes # (auto) 0.8 10 ^3/uL (0-1.3); Monocytes % (auto) 9.3 % (0.0-12.0); Neutrophils % (auto) 46.2 % (37.0-80.0); Nucleated Red Blood Cells % 0.1 %; Red Blood Cells 5.59 10^6/uL (4.5-5.90); Red Cell Distribution Width 14.1 % (11.8-14.3); White Blood Cell 8.6 10^3/uL (4.4-10.8)
[2023-01-08 01:25] LABS: Albumin 3.7 g/dL (3.4-5.0); Calcium 8.8 mg/dL (8.5-10.1); Magnesium 2.6 mg/dL (1.6-2.6); Potassium 3.7 mmol/L (3.5-5.1)
[2023-01-08 01:27] LABS: BUN/Creatinine Ratio 17.9 (10.0-20.0)
[2023-01-08 01:30] LABS: Bilirubin, Total 0.3 mg/dL (0.2-1.0); Total Protein 7.6 g/dL (6.4-8.2)
[2023-01-08 02:20] VITALS: BP 100/78; PULSE 81; RESP 20; O2SAT 95
== END 2023-01-08 03:26 | disposition home or self-care (01) ==
LOC: ER 00:33
DX: R07.89 Other chest pain (principal); I47.1 Supraventricular tachycardia; E11.9 Type 2 diabetes mellitus without complications; E78.5 Hyperlipidemia, unspecified; I10 Essential (primary) hypertension; Z88.0 Allergy status to penicillin
CPT/HCPCS: 36415; 71045; 80053; 83735; 83880; 84484; 85025; 93005; 96361; 96374; 99285; J0153; J7030

== ENCOUNTER 2023-01-12 14:47 | Emergency (ER) | payer OTHER | END 2023-01-12 16:20 | disposition left against medical advice (07) | LOC: ER 14:47 | DX: R00.2 Palpitations (principal); Z53.21 Procedure and treatment not carried out due to patient leaving prior to being seen by health care provider ==

== ENCOUNTER 2023-02-25 06:01 | Emergency (ER) | payer OTHER, MEDICAID ==
[~2023-02-25] VITALS: Ht 172.7 cm; Wt 97.7 kg
[~2023-02-25 06:01] MED LIST changes: -AMIO200T33 PO; -DOXY-286 PO
[2023-02-25] MEDS ORDERED: ASPirin-EC 81 mg tab PO ONE (06:30)
[2023-02-25 06:40] LABS: Basophils # (auto) 0 10 ^3/uL (0-0.2); Basophils % (auto) 0.5 % (0.0-2.0); Eosinophils # (auto) 0.2 10 ^3/uL (0-0.8); Eosinophils % (auto) 2.7 % (0.0-7.0); Hematocrit 47.5 % (41.0-53.0); Hemoglobin 16.4 g/dL (13.5-17.5); Lymphocytes # (auto) 2.3 10 ^3/uL (0.4-5.4); Lymphocytes % (auto) 34.1 % (10.0-50.0); Mean Corpuscular Hemoglobin 29.5 pg (28.0-32.0); Mean Corpuscular Hgb Conc. 34.4 g/dL (32.0-36.0); Mean Corpuscular Volume 85.7 fL (80.0-100.0); Monocytes # (auto) 0.8 10 ^3/uL (0-1.3); Monocytes % (auto) 11.8 % (0.0-12.0); Neutrophils # (auto) 3.4 10 ^3/uL (1.6-8.6); Neutrophils % (auto) 50.9 % (37.0-80.0); Nucleated Red Blood Cells % 0.2 %; Red Blood Cells 5.55 10^6/uL (4.5-5.90); Red Cell Distribution Width 14.1 % (11.8-14.3); White Blood Cell 6.6 10^3/uL (4.4-10.8)
[2023-02-25 06:53] LABS: INR 1.04 (0.9-1.15); Partial Thromboplastin Time 29.5 SEC (24.5-34.5); Prothrombin Time 10.9 sec (9.3-11.8)
[2023-02-25 06:56] LABS: Alanine Aminotransferase 27 U/L (7-40); Albumin 4.5 g/dL (3.2-4.8); Alkaline Phosphatase 84 U/L (46-116); Anion Gap 8 (5-15); Aspartate Aminotransferase 16 U/L (13-40); Blood Urea Nitrogen 17 mg/dL (9-23); Calcium 9.2 mg/dL (8.7-10.4); Carbon Dioxide 24 mmol/L (20-30); Chloride 107 mmol/L (98-107); Glucose 111 mg/dL (74-106); Magnesium 2.2 mg/dL (1.6-2.6); Potassium 3.6 mmol/L (3.5-5.1); Sodium 139 mmol/L (136-145)
[2023-02-25 06:57] LABS: Bilirubin, Total 0.9 mg/dL (0.2-1.0); Total Protein 7.4 g/dL (5.7-8.2)
[2023-02-25] MEDS ORDERED: IOHEXOL 350 MG/ML 100ML IJ ONE (07:06)
[2023-02-25 07:50] VITALS: PULSE 98; RESP 27; O2SAT 96
[2023-02-25] MEDS ORDERED: FLECAINIDE ACETATE 50 MG TAB PO ONE (12:15)
[2023-02-25] MEDS ORDERED: FLEC100T PO (12:29)
[2023-02-25 15:00] VITALS: BP 129/86; RESP 18; TEMP 97.8; O2SAT 95
[2023-02-25 19:23] VITALS: PULSE 160
== END 2023-02-25 14:34 | disposition home or self-care (01) ==
LOC: ER 06:01
DX: I47.1 Supraventricular tachycardia (principal); R07.89 Other chest pain; R94.31 Abnormal electrocardiogram [ECG] [EKG]; R79.89 Other specified abnormal findings of blood chemistry; I10 Essential (primary) hypertension; E11.9 Type 2 diabetes mellitus without complications; E78.5 Hyperlipidemia, unspecified; Z98.890 Other specified postprocedural states; Z88.0 Allergy status to penicillin; Z79.84 Long term (current) use of oral hypoglycemic drugs; Z79.899 Other long term (current) drug therapy
CPT/HCPCS: 36415; 71045; 71275; 80053; 83735; 83880; 84484; 85025; 85379; 85610; 85730; 93005; 99285; Q9967

== ENCOUNTER 2023-03-05 23:33 | Emergency (ER) | payer OTHER, MEDICAID ==
[~2023-03-05 23:33] MED LIST changes: +FLEC100T PO
== END 2023-03-06 00:01 | disposition left against medical advice (07) ==
LOC: ER 23:33
DX: R07.89 Other chest pain (principal); Z53.21 Procedure and treatment not carried out due to patient leaving prior to being seen by health care provider
CPT/HCPCS: 80053; 81001; 83735; 84484; 85730

== ENCOUNTER 2025-02-06 13:20 | Inpatient (IN) | payer MEDICAID, OTHER ==
[~2025-02-06] VITALS: Ht 172.7 cm; Wt 104.4 kg
--- NOTE | 2025-02-06 13:54 | ED.PDOC ---
History of Present Illness HPI Comments This is a 54-year-old male with past medical history of SVT (status post ablation, pacemaker), dyslipidemia and prediabetes came to the hospital due to transient lives of vision. Per patient, yesterday upon waking up from sleep, he had lost his left eye vision for 20 minutes. He also reports of headache, and dizziness. Today, he was checked by food vendor (per patient, normal study), subsequently he was referred to the hospital for further workup for possible TIA/stroke. He denies chest pain, shortness of breath, fever, any other motor/sensory deficits. EKG upon ER arrival, shows normal sinus rhythm with no significant ST or T-wave changes. Home meds: The patient does not take any medicine. Chief Complaint: Eye Problem Time Seen by MD: 13:25 Primary Care Provider: SHAE Allergies: Coded Allergies: Penicillins (Verified Allergy, Unknown, 09/26/21) Home Meds Active Scripts Flecainide Acetate (Flecainide Acetate) 100 Mg Tab, 0.5 TAB PO BID, #30 TAB 5 Refills Prov:MUNDO PEREZ MD 02/25/23 Tramadol Hcl (Ultram) 50 Mg Tab, 1 TAB PO Q6HR, #30 TAB Prov:SHAINA YI MD 08/11/22 Dexamethasone (Decadron) 4 Mg Tb, 8 MG PO DAILY for 9 Days, #18 TAB Prov:MO BRANCH DO 06/14/22 Metoprolol Tartrate (Lopressor) 25 Mg Tb, 25 MG PO BID for 30 Days, #60 TAB Prov:YOHANA HAMILTON MD 11/15/21 Atorvastatin Calcium (ATORVASTATIN CALCIUM) 20 Mg Tab, 40 MG PO HS for 30 Days, #60 TAB Prov:YOHANA HAMILTON MD 11/15/21 Aspirin (Aspirin 81 Low Dose) 81 Mg Chw, 81 MG PO DAILY, #90 TAB.CHEW Prov:STEVE MENSAH MD 10/02/21 Mode of Arrival: Ambulatory Timing: Days Duration: Days Past Medical History PAST MEDICAL HISTORY: DM, High Lipids, HTN Surgical History: Pacemaker Family History Family History: Reviewed,noncontributory to illness, Family hx of DM, Family hx of HTN Social History Smoker: Non-Smoker Alcohol: Denies ETOH Use Drugs: Denies Drug Use Lives In: Home Physical Exam General Appearance: No Apparent Distress, Normal HEENT: Normal ENT Inspection, Pharynx Normal, TMs Normal Neck: Full Range of Motion, Non-Tender, Normal, Normal Inspection Respiratory: Chest Non-Tender, Lungs Clear, No Accessory Muscle Use, No Respiratory Distress, Normal Breath Sounds Cardiovascular: No Edema, No JVD, No Murmur, No Gallop, Normal Peripheral Pulses, Regular Rate/Rhythm Breast Exam: Deferred Gastrointestinal: No Organomegaly, Non Tender, No Pulsatile Mass, Normal Bowel Sounds, Soft Genitalia: Deferred Pelvic: Deferred Rectal: Deferred Extremities: No calf tenderness, Normal capillary refill, Normal inspection, Normal range of motion, Non-tender, No pedal edema Neurologic: Alert, porcelain mixer II-XII nml as Tested, No Motor Deficits, Normal Affect, Normal Mood, No Sensory Deficits Cerebellar Function: Normal Reflexes: Normal Skin: Dry, Normal Color, Warm Lymphatic: No Adenopathy Was a procedure done? Was a procedure done?: No EKG EKG : Comments EKG: Sinus rhythm with no significant ST or T-wave changes. Differential Dx Considerations may include: TIA, stroke, X-Ray, Labs, Meds, VS Vital Signs Date Time Temp Pulse Resp B/P (MAP) Pulse Ox O2 Delivery O2 Flow Rate FiO2 02/06/25 13:51 100 02/06/25 13:23 98.3 112 15 122/97 96 98.3 Lab Test 02/06/25 14:08 Range/Units White Blood Count 7.1 4.4-10.8 10^3/uL Red Blood Count 5.65 4.5-5.90 10^6/uL Hemoglobin 16.7 13.5-17.5 g/dL Hematocrit 47.9 41.0-53.0 % Mean Corpuscular Volume 84.8 80.0-100.0 fL Mean Corpuscular Hemoglobin 29.5 28.0-32.0 pg Mean Corpuscular Hemoglobin Concent 34.8 32.0-36.0 g/dL Red Cell Distribution Width 14.2 11.8-14.3 % Platelet Count 235 140-450 10^3/uL Mean Platelet Volume 7.6 6.9-10.8 fL Neutrophils (%) (Auto) 59.1 37.0-80.0 % Lymphocytes (%) (Auto) 31.3 10.0-50.0 % Monocytes (%) (Auto) 7.3 0.0-12.0 % Eosinophils (%) (Auto) 1.8 0.0-7.0 % Basophils (%) (Auto) 0.5 0.0-2.0 % Neutrophils # (Auto) 4.2 1.6-8.6 10 ^3/uL Lymphocytes # (Auto) 2.2 0.4-5.4 10 ^3/uL Monocytes # (Auto) 0.5 0-1.3 10 ^3/uL Eosinophils # (Auto) 0.1 0-0.8 10 ^3/uL Basophils # (Auto) 0 0-0.2 10 ^3/uL Nucleated Red Blood Cells 0.1 % Sodium Level 140 136-145 mmol/L Potassium Level 4.0 3.5-5.1 mmol/L Chloride Level 105 98-107 mmol/L Carbon Dioxide Level 26 20-31 mmol/L Anion Gap 9 5-15 Blood Urea Nitrogen 16 9-23 mg/dL Creatinine 0.89 0.700-1.30 mg/dL Glomerular Filtration Rate Calc 103 >90 mL/min BUN/Creatinine Ratio 18.0 10.0-20.0 Serum Glucose 100 74-106 mg/dL Calcium Level 9.3 8.7-10.4 mg/dL Total Bilirubin 0.8 0.2-1.0 mg/dL Aspartate Amino Transferase (AST) 27 13-40 U/L Alanine Aminotransferase (ALT) 34 7-40 U/L Alkaline Phosphatase 84 46-116 U/L Troponin I High Sensitivity 3 L </=54 ng/L Total Protein 7.4 5.7-8.2 g/dL Albumin 4.5 3.2-4.8 g/dL Current Medications Medications (Trade) Dose Ordered Sig/Livia Route Start Time Stop Time Status Last Admin Atorvastatin Calcium (Lipitor) 80 mg ONCE ONCE PO 02/06/25 13:45 02/06/25 14:21 DC 02/06/25 15:45 Time of 1ST Reevaluation: 16:04 Reevaluation 1ST: Unchanged Patient Education/Counseling: Diagnosis, Treatment, Prognosis, Need For Follow Up, Pt Unresponsive Family Education/Counseling: No Family Present Comments Patient came to the hospital due to transient loss of vision. Ophthalmology evaluated the patient and referred to the hospital for possible TIA/stroke evaluation. Patient is vitally stable. EKGs showed normal sinus rhythm with no significant ST or T-wave changes. On neurological examination there was no sensory/motor deficits. Cranial nerves grossly within normal limits. Head CT scan performed, showed no significant intracranial abnormalities. CBC and CMP checked, within normal limits. The patient will be admitted hospital for further management and evaluation including MRI/carotid Doppler and possible expert opinion. SEPSIS Sepsis Screen Date sepsis recognized/suspect: Feb 06, 2025 Time Sepsis recognized/suspect: 1326 Recent Procedure: No On Antibiotic Therapy: No Respiratory Rate >20: No Heart Rate >90: No Temp<36 C (96.8 F) or >38.3 C: No SBP <90 or MAP <65 mmHG: No New Acute Mental Status Change: No Is the patient on CPAP, BIPAP,: No Physician Orders Electrocardigram (02/06/25 13:37) Drug Screen (02/06/25 13:31) Head Without Contrast (02/06/25 13:31) Vital Signs Date Time Temp Pulse Resp B/P (MAP) Pulse Ox O2 Delivery O2 Flow Rate FiO2 02/06/25 13:51 100 02/06/25 13:23 98.3 112 15 122/97 96 98.3 Laboratory Tests Test 02/06/25 14:08 White Blood Count 7.1 10^3/uL (4.4-10.8) Medications Medications Dose Ordered Sig/Livia Route Start Time Stop Time Status Last Admin Dose Admin Atorvastatin Calcium 80 mg ONCE ONCE PO 02/06/25 13:45 02/06/25 14:21 DC 02/06/25 15:45 Departure 1 Departure Time of Disposition: 16:05 Impression: Primary Impression: TIA (transient ischemic attack) Disposition: ADMITTED INPATIENT Admit to: Tele Condition: Guarded Critical Care Note Critical Care Time?: No Stability Stability form required: No Heart Score Heart Score: Heart Score Response (Comments) Value History N/A 0 EKG Normal 0 Age 45-64 1 Risk Factors 1 or 2 risk factors 1 Troponin N/A 0 Total 2 ZOFIA NUNO RESDIENT Feb 06, 2025 13:54
--- NOTE | 2025-02-06 14:16 | DVH ---
EXAM: CT HEAD WITHOUT CONTRAST INDICATION: stroke TECHNIQUE: CT of the head without intravenous contrast. Radiation Dose Information: CT Dose: CTDI volume is 25 mGy. Dose-length product is 250 mGy*cm The dose indicators for CT are the volume Computed Tomography (CT) Dose Index (CTDIvol) and the Dose Length Product (DLP), and are measured in units of mGy and mGy-cm, respectively. These indicators are not patient dose, but values generated from the CT scanner acquisition factors. The report includes radiation exposure data for exposures received during this examination. COMPARISON: None FINDINGS: There is no evidence of acute intracranial hemorrhage, extra-axial collection, mass effect, midline s hift, herniation or hydrocephalus. The ventricles, sulci and cisterns are age appropriate. The stewart-white differentiation is intact. Patchy periventricular and subcortical white matter hypoattenuation is nonspecific but may be related to small vessel ischemic disease. The visualized paranasal sinuses and mastoid air cells are clear. The surrounding soft tissues and osseous structures are unremarkable. IMPRESSION: No acute intracranial abnormality.
[2025-02-06 14:20] LABS: Hematocrit 47.9 % (41.0-53.0); Hemoglobin 16.7 g/dL (13.5-17.5); Mean Corpuscular Hemoglobin 29.5 pg (28.0-32.0); Mean Corpuscular Volume 84.8 fL (80.0-100.0); Nucleated Red Blood Cells % 0.1 %
[2025-02-06 14:39] LABS: Alanine Aminotransferase 34 U/L (7-40); Albumin 4.5 g/dL (3.2-4.8); Alkaline Phosphatase 84 U/L (46-116); Anion Gap 9 (5-15); BUN/Creatinine Ratio 18.0 (10.0-20.0); Blood Urea Nitrogen 16 mg/dL (9-23); Calcium 9.3 mg/dL (8.7-10.4); Carbon Dioxide 26 mmol/L (20-31); Chloride 105 mmol/L (98-107); Glucose 100 mg/dL (74-106); Potassium 4.0 mmol/L (3.5-5.1); Sodium 140 mmol/L (136-145); Total Protein 7.4 g/dL (5.7-8.2)
[2025-02-06 14:40] LABS: Bilirubin, Total 0.8 mg/dL (0.2-1.0)
[2025-02-06] MEDS: ATORVASTATIN 20 MG TAB PO ONE (15:45)
[2025-02-06] MEDS ORDERED: ASPirin-EC 81 mg tab PO ONE (17:15)
[2025-02-06] MEDS: FLECAINIDE ACETATE 50 MG TAB PO ONE (17:15)
[2025-02-06] MEDS ORDERED: ONDANSETRON HCL 4 MG/2 ML VIAL IV PRN (20:30)
[2025-02-06] MEDS: IOHEXOL 300 MG/ML 100ML BOTTLE IJ ONE (20:59)
[2025-02-06 21:08] LABS: HDL Cholesterol 49 mg/dL (40-59)
[2025-02-06 21:11] LABS: Cholesterol 212 mg/dL (< 200); Triglycerides 166 mg/dL (< 150)
--- NOTE | 2025-02-06 22:36 | DVH ---
CLINICAL HISTORY: dizziness, headaches TECHNIQUE: CT of the head and neck was performed without and with intravenous contrast. This exam w as performed according to our departmental dose optimization program. Up-to-date CT equipment and rad iation dose reduction techniques are utilized as appropriate. CTDI 67.5 DLP 2296.1 COMPARISON: CT HEAD WITHOUT CONTRAST on DOS: 02/06/25, XY MANDIBLE COMPLETE MIN 4V on DOS: 08/11/22 FINDINGS: CT NECK: The parotid and similar glands glands are unremarkable. There is a peripherally calcified 1.8 CM rig ht thyroid lobe nodule. The airway is patent. The epiglottis and palatine / lingual tonsils are unremarkable.. No acute osseu s abnormality is seen. There is no enlarged lymph node. The common carotid, internal carotid, and vertebral arteries are grossly patent with no evidence for significant stenosis. CT HEAD: There is no evidence for acute intracranial hemorrhage, acute ischemic changes, mass, mass effect, or extra-axial fluid collection. There is no hydrocephalus or midline shift. There is no effacement of the cerebral sulci and basal subarachnoid cisterns. The stewart-white matter differentiation is well glenda ntained. The imaged paranasal sinuses are clear. There is no abnormal enhancement. The intracranial vessels are not adequately assessed. However, ther e is no gross evidence for occlusion. IMPRESSION: PLEASE NOTE THAT THIS IS a CONTRAST ENHANCED CT OF THE HEAD AND NECK AND NOT a CTA. NO ACUTE INTRACRANIAL ABNORMALITY SEEN. NO ACUTE CT ABNORMALITY OF THE NECK. PERIPHERALLY CALCIFIED 1.8 CM RIGHT THYROID LOBE NODULE.
[2025-02-06] MEDS: ATORVASTATIN 20 MG TAB PO SCH (23:08)
[2025-02-06] MEDS: FAMOTIDINE 20 MG TAB PO SCH (23:09)
[2025-02-06] MEDS: METOPROLOL TARTRATE 25 MG TAB PO SCH (23:09)
[2025-02-06 23:18] VITALS: PULSE 78; RESP 16; O2SAT 96
[2025-02-06 23:42] VITALS: BP 145/97; PULSE 75; RESP 16; TEMP 97.6; O2SAT 98
[2025-02-07] VITALS (8 sets, daily range): BP systolic 102–145; BP diastolic 67–97; PULSE 65–81; RESP 16–20; TEMP 97–98; O2SAT 94–98
--- NOTE | 2025-02-07 00:17 | ECG ---
[facility] Test Date: 2025-02-06 Test Time: 13:51:28 Pat Name: NAILA GILL Department: [facility] ED Patient ID: [id number] Room: 0240T Gender: M Schedule Announcer: korina : 1970 Requested By: ZOFIA NUNO Order Number: [id number] Reading MD: Measurements Intervals [place] Rate: 100 P: 53 IN: 138 QRS: -55 QRSD: 102 T: 12 QT: 353 QTc: 456 Interpretive Statements Sinus tachycardia LAD, consider left anterior fascicular block RSR' in V1 or V2, right VCD or RVH Left ventricular hypertrophy Please click the below link to view image of tracing.
[2025-02-07] MEDS: FLECAINIDE ACETATE 50 MG TAB PO SCH (00:35)
[2025-02-07] MEDS: ACETAMINOPHEN 325 MG TAB PO PRN (00:36)
--- NOTE | 2025-02-07 01:15 | DVHHP2 ---
Admitting Diagnosis: Dizziness, Headaches, visual disturbances History of Present Illness History Source: Patient Exam Limitations: No limitations HPI Mr. Reynaldo Collazo is a 54-year-old male with past medical history of SVT (status post ablation, pacemaker), dyslipidemia and prediabetes came to the hospital due to transient lives of vision. Per patient, on Thursday upon waking up from sleep, he had lost his left eye vision for 20 minutes. He also reports of headache, and dizziness. Yesterday, he was checked by eeo officer (per patient, normal study), subsequently he was referred to the hospital for further workup for possible TIA/stroke. Patient reports he has not seen a neurologists. Patient reports he has been having these symptoms for the past three months. He denies chest pain, shortness of breath, fever, any other motor/sensory deficits. Home Meds Active Scripts Flecainide Acetate (Flecainide Acetate) 100 Mg Tab, 0.5 TAB PO BID, #30 TAB 5 Refills Prov:MUNDO PEREZ MD 02/25/23 Tramadol Hcl (Ultram) 50 Mg Tab, 1 TAB PO Q6HR, #30 TAB Prov:SHAINA YI MD 08/11/22 Dexamethasone (Decadron) 4 Mg Tb, 8 MG PO DAILY for 9 Days, #18 TAB Prov:MO BRANCH DO 06/14/22 Metoprolol Tartrate (Lopressor) 25 Mg Tb, 25 MG PO BID for 30 Days, #60 TAB Prov:YOHANA HAMILTON MD 11/15/21 Atorvastatin Calcium (ATORVASTATIN CALCIUM) 20 Mg Tab, 40 MG PO HS for 30 Days, #60 TAB Prov:YOHANA HAMILTON MD 11/15/21 Aspirin (Aspirin 81 Low Dose) 81 Mg Chw, 81 MG PO DAILY, #90 TAB.CHEW Prov:STEVE MENSAH MD 10/02/21 Past Medical History Cardiac: Other (SVT with ablation) Pulmonary: No pertinent Hx Central Nervous System: No pertinent Hx GI: No pertinent Hx Hemotology/Oncology: No pertinent Hx Hepatobiliary: No pertinent Hx Psychiatric: No pertinent Hx Musculoskeletal: No pertinent Hx Rheumotologic: No pertinent Hx Infectious Disease: No peritnent Hx ENT: No pertinent Hx Renal/: No pertinent Hx Endocrine: No pertinent Hx Dermatology: No pertinent Hx Past Surgical History: Pacemaker Patient Family History: Diabetes mellitus G8 MOTHER Smoker: No Hx (Negative) Drugs: None Lives with: With family Domestic Violence: Neg Review of Systems Constitutional: Other (Dizziness, headaches) Ears, Nose, & Throat: No symptom reported Eyes: Other (intermittent loss of vision to left eye) Pulmonary/Respiratory: No symptom reported Cardiovascular: No symptom reported Gastrointestinal: No symptom reported Genitourinary: No symptom reported Musculoskeletal: No symptom reported Skin: No symptom reported Psychiatric: No symptom reported Endocrine: No symptom reported Hemotologic/Lymphatic: No symptom reported H&P Exam Vital Signs Vital Signs Date Time Temp Pulse Resp B/P (MAP) Pulse Ox O2 Delivery O2 Flow Rate FiO2 02/06/25 23:18 78 16 96 Room Air* 0 21 02/06/25 23:09 146/96 02/06/25 23:01 98.9 98.9 General Appeara: Well developed, Well nourished, Normal Appearance Head Exam: Normal inspection Neck Exam: Normal inspection, Non-tender, Normal alignment Eye Exam: bilateral eye Normal inspection, bilateral eye PERRL, bilateral eye EOMI Ear Exam: bilateral ear Auricle normal Nasal Exam: Normal inspection Mouth: Normal Inspection Pulmonary/Respiratory: Normal inspection, Normal breath sounds, Chest non- tender, Lungs clear Cardiovascular/Chest: Normal inspection, Regular rate, Normal Rhythm Peripheral Pulses: 2+ dorsalis pedis (R), 2+ dorsalis pedis (L), 2+ Radial (R), 2+ Radial (L) Abdominal Exam: Normal bowel sounds, Soft, No tenderness 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 Exam: Normal hearing, Normal speech, PERRL Neuro/Mental St: Alert, Oriented Appearance: Appropriate appearance, Appropriate insight Eye contact/ Speech: Cooperative, Good eye contact, Normal speech Thoughts/Psych: Normal thought pattern Coordination/Gait: Normal finger->nose, Normal gait Skin Exam: Normal inspection, Normal color, Warm/dry Lymphatic: Normal inspection, Adenopathy SEPSIS Sepsis Screen Date sepsis recognized/suspect: Feb 06, 2025 Time Sepsis recognized/suspect: 2318 Recent Procedure: No On Antibiotic Therapy: No Respiratory Rate >20: No Heart Rate >90: No Temp<36 C (96.8 F) or >38.3 C: No SBP <90 or MAP <65 mmHG: No New Acute Mental Status Change: No Is the patient on CPAP, BIPAP,: No Physician Orders Admit (02/06/25 20:30) * Cardiology Consult (02/06/25 20:30) * Neurology Consult (02/06/25 20:30) Echo 2d Mode Cardiac Dop (02/06/25 20:30) Brain Head Wo Contrast (02/06/25 20:30) Pt Request For Service (02/06/25 20:30) Swallow Eval Follow Up (02/06/25 20:30) Fall Risk Precautions In Place QSHIFT (02/06/25 20:30) Stat Ekg For Chest Pain (02/06/25 20:30) Notify Md Of Changes From Base (02/06/25 20:30) Headline Writer For 24 Hours (02/06/25 20:30) Emergency Dysrhythmia Protocol (02/06/25 20:30) Rhythm Strips Once Every Shift (02/06/25 20:30) Oxygen By Nasal Cannula (02/06/25 20:30) Urinalysis (02/06/25 20:30) Ct Head Neck With Cont (02/06/25 20:30) Full Code (02/06/25 20:30) Acetaminophen Tablet (Tylenol Tablet) (02/06/25 20:30) Famotidine Tablet (Pepcid Tablet) (02/06/25 22:00) Ondansetron Hcl (Zofran) (02/06/25 20:30) Vital Signs Date Time Temp Pulse Resp B/P (MAP) Pulse Ox O2 Delivery O2 Flow Rate FiO2 02/06/25 23:18 78 16 96 Room Air* 0 21 02/06/25 23:09 79 146/96 02/06/25 23:01 98.9 79 18 146/96 (113) 97 98.9 02/06/25 22:02 97.9 91 16 129/84 (99) 97 97.9 02/06/25 18:51 97.9 87 16 141/99 (113) 98 97.9 Laboratory Tests Test 02/06/25 14:08 White Blood Count 7.1 10^3/uL (4.4-10.8) Medications Medications Dose Ordered Sig/Livia Route Start Time Stop Time Status Last Admin Dose Admin Acetaminophen 650 mg Q6HPRN PRN PO 02/06/25 20:30 02/07/25 00:36 650 MG Aspirin 81 mg ONCE ONCE PO 02/06/25 16:15 02/06/25 16:37 DC 02/06/25 23:09 81 MG Atorvastatin Calcium 40 mg HS PO 02/06/25 22:00 02/06/25 23:08 40 MG Atorvastatin Calcium 80 mg ONCE ONCE PO 02/06/25 13:45 02/06/25 14:21 DC 02/06/25 15:45 80 MG Famotidine 20 mg BID PO 02/06/25 22:00 02/06/25 23:09 20 MG Flecainide Acetate 50 mg Q12HR PO 02/06/25 22:00 02/07/25 00:35 50 MG Metoprolol Tartrate 25 mg BID PO 02/06/25 22:00 02/06/25 23:09 25 MG Labs/Xrays Labs Test 02/06/25 14:08 02/06/25 14:05 Range/Units White Blood Count 7.1 4.4-10.8 10^3/uL Red Blood Count 5.65 4.5-5.90 10^6/uL Hemoglobin 16.7 13.5-17.5 g/dL Hematocrit 47.9 41.0-53.0 % Mean Corpuscular Volume 84.8 80.0-100.0 fL Mean Corpuscular Hemoglobin 29.5 28.0-32.0 pg Mean Corpuscular Hemoglobin Concent 34.8 32.0-36.0 g/dL Red Cell Distribution Width 14.2 11.8-14.3 % Platelet Count 235 140-450 10^3/uL Mean Platelet Volume 7.6 6.9-10.8 fL Neutrophils (%) (Auto) 59.1 37.0-80.0 % Lymphocytes (%) (Auto) 31.3 10.0-50.0 % Monocytes (%) (Auto) 7.3 0.0-12.0 % Eosinophils (%) (Auto) 1.8 0.0-7.0 % Basophils (%) (Auto) 0.5 0.0-2.0 % Neutrophils # (Auto) 4.2 1.6-8.6 10 ^3/uL Lymphocytes # (Auto) 2.2 0.4-5.4 10 ^3/uL Monocytes # (Auto) 0.5 0-1.3 10 ^3/uL Eosinophils # (Auto) 0.1 0-0.8 10 ^3/uL Basophils # (Auto) 0 0-0.2 10 ^3/uL Nucleated Red Blood Cells 0.1 % Sodium Level 140 136-145 mmol/L Potassium Level 4.0 3.5-5.1 mmol/L Chloride Level 105 98-107 mmol/L Carbon Dioxide Level 26 20-31 mmol/L Anion Gap 9 5-15 Blood Urea Nitrogen 16 9-23 mg/dL Creatinine 0.89 0.700-1.30 mg/dL Glomerular Filtration Rate Calc 103 >90 mL/min BUN/Creatinine Ratio 18.0 10.0-20.0 Serum Glucose 100 74-106 mg/dL Hemoglobin A1c 5.8 H <5.7 % A1C Calcium Level 9.3 8.7-10.4 mg/dL Total Bilirubin 0.8 0.2-1.0 mg/dL Aspartate Amino Transferase (AST) 27 13-40 U/L Alanine Aminotransferase (ALT) 34 7-40 U/L Alkaline Phosphatase 84 46-116 U/L Troponin I High Sensitivity 3 L </=54 ng/L Total Protein 7.4 5.7-8.2 g/dL Albumin 4.5 3.2-4.8 g/dL Triglycerides Level 166 H < 150 mg/dL Cholesterol Level 212 H < 200 mg/dL LDL Cholesterol 147 H < 100 mg/dL HDL Cholesterol 49 40-59 mg/dL Thyroid Stimulating Hormone (TSH) 0.86 0.55-4.78 uIU/mL Erythrocyte Sedimentation Rate 2 0-20 mm/hr C-Reactive Protein High Sensitivity 0.22 <1.0 mg/dL Assessment/Plan Problem List: (1) Dizziness (2) Headache (3) Visual disturbance Plan This is a 54 yo male with known history of SVT with ablation, pacemaker placement, dyslipidemia, pre diabetes who presents with dizziness, headaches, visual disturbances to left eye with loss of vision x 20 min x 2 days ago. 1. Dizziness 2. Headaches 3. Visual disturbances 4. TIA Plan Admit Telemetry unit Neurology consultation, MRI Brain, ASA, Statin Cardiology consultation, 2D echocardiogram A1C level, Lipid Panel Discussed all above with patient who verbalizes agreement and understanding of care plan. All questions were answered. Discussed with supervising MD. Plan discussed with: Patient, Other Code Visit Code Visit Total Time (mins): 45 Additional Comments Additional Comments Additional Comments Patient is seen and evaluated by me earlier today. Patient's chart is reviewed. Patient is seen evaluated and admitted by nurse practitioner. I agree with the her evaluation, documentation, assessment and care plan as outlined. AL ALVAREZ Feb 07, 2025 01:15 TAIOW CANTU MD Feb 07, 2025 12:33
[2025-02-07] MEDS: ASPirin-EC 81 mg tab PO SCH (09:10)
[2025-02-07] MEDS: DOCUSATE SOD 100 MG CAP PO SCH (09:10)
--- NOTE | 2025-02-07 09:38 | DVHCONRES ---
Date Seen: Feb 07, 2025 Resident Creating Document: REJI HOWARD RESIDENT Referring Physician Brianna Ventura Reason for Consultation dizziness, tia History of Present Illness Patient admitted with transient monocular vision loss of the left eye lasting ~30 minutes after awakening from sleep, associated with dizziness and frontal headache. Ophthalmology evaluation was normal; concern raised for TIA vs amaurosis fugax. Reports similar but shorter visual episodes intermittently over the past 3 months. Associated symptoms include ocular soreness, jaw tightness, vertigo, numbness in the left hand, and occasional facial numbness. No chest pain, palpitations at present, dyspnea, syncope, or weakness. Past history significant for SVT s/p ablation (2021), sick sinus syndrome with sinus pauses, dual-chamber pacemaker (MRI conditional, 2021), tachycardia- induced NJ (type II, cath clean), hyperlipidemia, and prediabetes. Reports inconsistent adherence to flecainide, metoprolol, aspirin, and statin due to perceived side effects. Interval Events / Todays Progress * Telemetry: sinus tachycardia, no atrial fibrillation. Some brief irregularities noted but confirmed as artifact. * Pacemaker interrogation: normal function; no AF, no AHREs; evidence of appropriate pacing, no mode switches to VVI. * Echocardiogram with bubble study: EF 65%, normal LV function, slightly dilated RV, normal valves, no effusion, no shunt identified. * Carotid duplex: no hemodynamically significant stenosis bilaterally; vertebral flow antegrade. * Neuroimaging: CT head/neck (with and without contrast) and MRI brain no acute infarct, no hemorrhage, no intracranial abnormality. * Labs: HbA1c 5.8 (prediabetes), LDL 147 mg/dL, cholesterol 212 mg/dL, triglycerides 166 mg/dL, HDL 49 mg/dL. CBC, BMP, TSH, ESR normal. Troponin negative. Urine tox screen negative. 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 * Hyperlipidemia * Prediabetes * No tobacco, alcohol, or illicit drug use Family History: Diabetes mellitus G8 MOTHER FH: arthritis G8 MOTHER FH: hypertension G8 MOTHER G8 SISTER Stroke G8 SISTER, G8 SISTER G8 SISTER Social History * No tobacco, alcohol, or illicit drug use Allergies: Coded Allergies: Penicillins (Verified Allergy, Unknown, 09/26/21) Home Meds Active Scripts Flecainide Acetate (Flecainide Acetate) 100 Mg Tab, 0.5 TAB PO BID, #30 TAB 5 Refills Prov:MUNDO PEREZ MD 02/25/23 Tramadol Hcl (Ultram) 50 Mg Tab, 1 TAB PO Q6HR, #30 TAB Prov:SHAINA YI MD 08/11/22 Dexamethasone (Decadron) 4 Mg Tb, 8 MG PO DAILY for 9 Days, #18 TAB Prov:MO BRANCH DO 06/14/22 Metoprolol Tartrate (Lopressor) 25 Mg Tb, 25 MG PO BID for 30 Days, #60 TAB Prov:YOHANA HAMILTON MD 11/15/21 Atorvastatin Calcium (ATORVASTATIN CALCIUM) 20 Mg Tab, 40 MG PO HS for 30 Days, #60 TAB Prov:YOHANA HAMILTON MD 11/15/21 Aspirin (Aspirin 81 Low Dose) 81 Mg Chw, 81 MG PO DAILY, #90 TAB.CHEW Prov:STEVE MENSAH MD 10/02/21 Current Medications Current Medications Medications (Trade) Dose Ordered Sig/Livia Route PRN Reason Start Time Stop Time Status Last Admin Atorvastatin Calcium (Lipitor) 40 mg HS PO 02/06/25 22:00 02/06/25 23:08 Metoprolol Tartrate (Lopressor Tablet) 25 mg BID PO 02/06/25 22:00 02/07/25 09:10 Aspirin (Ecotrin Enteric Coated Tablet) 81 mg DAILY PO 02/07/25 10:00 02/07/25 09:10 Flecainide Acetate (Tambocor Tablet) 50 mg Q12HR PO 02/06/25 22:00 02/07/25 09:10 Acetaminophen (Tylenol Tablet) 650 mg Q6HPRN PRN PO PAIN SCALE 1-3 OR TEMP>100.4 02/06/25 20:30 02/07/25 09:10 Famotidine (Pepcid Tablet) 20 mg BID PO 02/06/25 22:00 02/07/25 09:11 Ondansetron HCl (Zofran) 4 mg Q6HP PRN IV NAUSEA OR VOMITING 02/06/25 20:30 Docusate Sodium (Colace Capsule) 100 mg BID PO 02/07/25 10:00 02/07/25 09:10 Review of Systems * Neuro/ocular: transient blurred vision, headaches, dizziness, floaters, jaw tightness. * CV: intermittent palpitations historically, no chest pain or syncope currently. * Resp: no dyspnea. * Other systems: non-contributory. Vital Signs Vital Signs Date Time Temp Pulse Resp B/P (MAP) Pulse Ox O2 Delivery O2 Flow Rate FiO2 02/07/25 09:10 67 135/85 02/07/25 05:00 98.0 16 98 98.0 02/07/25 01:36 Room Air* 0 21 Physical Exam * Vitals: BP 135/85 mmHg, HR 8090 bpm, afebrile, SpO? 98% RA * General: alert, no acute distress * Neck: no JVD, no carotid bruits * Cardiac: regular rate, normal S1/S2, no murmurs, rubs, or gallops; pacemaker site clean * Lungs: clear * Extremities: no edema * Neuro: non-focal, cranial nerves intact Labs/Diagnostic Data Labs Test 02/06/25 14:08 02/06/25 14:05 Range/Units White Blood Count 7.1 4.4-10.8 10^3/uL Red Blood Count 5.65 4.5-5.90 10^6/uL Hemoglobin 16.7 13.5-17.5 g/dL Hematocrit 47.9 41.0-53.0 % Mean Corpuscular Volume 84.8 80.0-100.0 fL Mean Corpuscular Hemoglobin 29.5 28.0-32.0 pg Mean Corpuscular Hemoglobin Concent 34.8 32.0-36.0 g/dL Red Cell Distribution Width 14.2 11.8-14.3 % Platelet Count 235 140-450 10^3/uL Mean Platelet Volume 7.6 6.9-10.8 fL Neutrophils (%) (Auto) 59.1 37.0-80.0 % Lymphocytes (%) (Auto) 31.3 10.0-50.0 % Monocytes (%) (Auto) 7.3 0.0-12.0 % Eosinophils (%) (Auto) 1.8 0.0-7.0 % Basophils (%) (Auto) 0.5 0.0-2.0 % Neutrophils # (Auto) 4.2 1.6-8.6 10 ^3/uL Lymphocytes # (Auto) 2.2 0.4-5.4 10 ^3/uL Monocytes # (Auto) 0.5 0-1.3 10 ^3/uL Eosinophils # (Auto) 0.1 0-0.8 10 ^3/uL Basophils # (Auto) 0 0-0.2 10 ^3/uL Nucleated Red Blood Cells 0.1 % Sodium Level 140 136-145 mmol/L Potassium Level 4.0 3.5-5.1 mmol/L Chloride Level 105 98-107 mmol/L Carbon Dioxide Level 26 20-31 mmol/L Anion Gap 9 5-15 Blood Urea Nitrogen 16 9-23 mg/dL Creatinine 0.89 0.700-1.30 mg/dL Glomerular Filtration Rate Calc 103 >90 mL/min BUN/Creatinine Ratio 18.0 10.0-20.0 Serum Glucose 100 74-106 mg/dL Hemoglobin A1c 5.8 H <5.7 % A1C Calcium Level 9.3 8.7-10.4 mg/dL Total Bilirubin 0.8 0.2-1.0 mg/dL Aspartate Amino Transferase (AST) 27 13-40 U/L Alanine Aminotransferase (ALT) 34 7-40 U/L Alkaline Phosphatase 84 46-116 U/L Troponin I High Sensitivity 3 L </=54 ng/L Total Protein 7.4 5.7-8.2 g/dL Albumin 4.5 3.2-4.8 g/dL Triglycerides Level 166 H < 150 mg/dL Cholesterol Level 212 H < 200 mg/dL LDL Cholesterol 147 H < 100 mg/dL HDL Cholesterol 49 40-59 mg/dL Thyroid Stimulating Hormone (TSH) 0.86 0.55-4.78 uIU/mL Erythrocyte Sedimentation Rate 2 0-20 mm/hr C-Reactive Protein High Sensitivity 0.22 <1.0 mg/dL Assessment 1. Transient monocular vision loss (amaurosis fugax) suspected ocular TIA * Ophthalmology normal; CTA/MRI negative; carotid duplex normal. * Differential: cardioembolic source (though no AF, no shunt), retinal migraine, giant cell arteritis (ESR/CRP normal), small vessel ischemia. 2. Arrhythmia/Device management SSS s/p dual-chamber pacemaker * Pacemaker interrogation: no AF, no significant arrhythmias, normal pacing. * Sick sinus syndrome, Cardiac pacemaker in situ 3. History of SVT ablation (2021) 4. Hyperlipidemia uncontrolled 5. Prediabetes (HbA1c 5.8%) vascular risk factor. 6. History of type 2 NJ (tachycardia-induced, 2021) stable. 7. Medication non-adherence likely contributor to risk. Plan/Recommendation Plan Rhythm / Device * Pacemaker interrogation completed: continue monitoring. * Maintain telemetry during admission. * Continue flecainide 50 mg q12h and metoprolol tartrate 25 mg BID (monitor for bradycardia/hypotension). * Maintain K? ?4.0, Mg? ?2.0. * No anticoagulation at this time (no AF detected). Cerebrovascular Protection * Continue aspirin 81 mg daily. * Neurology consulted for TIA work-up. * Carotid duplex negative; bubble echo negative. * MRI brain negative. Lipids * Escalate to atorvastatin 80 mg nightly. * Repeat lipid panel in 68 weeks; consider ezetimibe if LDL >70. Prediabetes / Risk factors * Lifestyle modification counseling. * Outpatient endocrinology/PCP follow-up. Secondary Prevention * BP goal <130/80. Continue beta-isadora; add ACEi/ARB if needed. * Emphasize strict medication adherence and risk factor modification. Prophylaxis (Inpatient) * Enoxaparin 40 mg SC daily for DVT prophylaxis (renal dosing if required). * GI prophylaxis: famotidine 20 mg BID. * Electrolyte replacement protocol. Case discussed in detail with the attending physician, including the clinical presentation, diagnostic workup, and comprehensive management plan. The patient was present for the discussion and demonstrated understanding of his condition and the proposed plan. Plan discussed with: Patient, Spouse Visit Coding Cardiology RES Date of Service: Feb 07, 2025 Billing Provider: MASTER MEJIA Sr., MD Cardiology Common Codes: 45030-[id number] INP/OBS CARE (High) REJI HOWARD RESIDENT Feb 07, 2025 09:37
[2025-02-07 12:54] LABS: Urine Protein, UAD Negative (Negative)
--- NOTE | 2025-02-07 13:35 | DVH ---
Carotid Duplex Date: 02/07/2025 12:42 PM Clinical History: Evaluate for carotid vessels disease Comparison: None Technique: Duplex Doppler evaluation of the extracranial carotid and vertebral arteries including col or Doppler and spectral/pulsed waveform analysis was performed. Findings: Velocities and ratios within normal limits. Bilateral vertebral artery antegrade flow IMPRESSION: No hemodynamically significant stenosis noted in the right carotid system. No hemodynamically significant stenosis noted in the left carotid system. Reference: Radiology 2003; 229:340-346
[2025-02-07] MEDS: MECLIZINE HCL 25 MG TAB PO SCH (14:00)
--- NOTE | 2025-02-07 18:13 | DVH ---
EXAM: MRI BRAIN HEAD WO CONTRAST INDICATION: visual distrubance TECHNIQUE: Multiplanar, multisequence imaging of the brain without contrast. COMPARISON: CT CT HEAD NECK WITH CONT on DOS: 02/06/25 FINDINGS: [PARENCHYMA]: No acute infarct or hemorrhage. No mass effect or herniation. No abnormal susceptibilit y weighted artifact. [VENTRICLES]: No hydrocephalus. [EXTRA-AXIAL SPACES]: No extra-axial fluid collections. [FLOW VOIDS]: The flow voids are intact. [EXTRA-CRANIAL STRUCTURES]: The bony structures are intact. Visualized portions of the paranasal sinu ses and mastoid air cells are essentially clear. IMPRESSION: 1. No MR evidence of an acute intracranial abnormality.
[2025-02-07 18:15] LABS: Barbiturate Scree,Urine Neg (NEGATIVE); Opiate Scree,Urine Neg (NEGATIVE)
[2025-02-07 18:16] LABS: Amphetamine Screen, Urine Neg (NEGATIVE); Benzodiazephine Screen, Urine Neg (NEGATIVE); Cannabinoid Screen, Urine Neg (NEGATIVE); Cocaine Screen, Urine Neg (NEGATIVE); Phencyclidine Screen, Urine Neg (NEGATIVE)
--- NOTE | 2025-02-07 20:06 | DVHSR ---
APPROVED REPORT EXAM: Two-dimensional and M-mode echocardiogram with Doppler, color Doppler and Bubble Study. Blood Pressure: 135/85 mmHg INDICATION CVA/TIA: RISK FACTORS Height: 5'8", Weight: 230 DIMENSIONS LVDd4.6 (3.8-5.7cm)LA (2D)3.8 (1.9-4.0cm)Aortic Root3.8 (2.0-3.7cm) LVDs3.3 (2.5-4.0cm)LA (MM) (1.9-4.0cm)Aortic Cusp Exc1.9 (1.5-2.0cm) EF (%) 56.0 (55-70%)Rt. Atrium4.0 (1.9-4.0cm)Asc. Aorta3.1 cm IVSd0.9 (0.7-1.1cm)RV (D) (1.8-2.4cm) PWd0.8 (0.7-1.1cm) Mitral Valve MitralMitral Stenosis E wave0.66m/sMV Mean GR.mmHg A wave0.46m/sMV Peak GR.mmHg E/A ratio1.42D MVAcm2 DECEL [id number] 1/2 Timems Aortic Valve Aortic ValveAortic Stenosis V10.78m/Jorge Mean GR.2mmHg V20.99m/Jorge Peak GR.4mmHg LVOT Diameter2.2 (1.8-2.4cm)Doppler AVA2.99cm2 Pulmonic Valve V20.72m/s Tricuspid Valve TR Velocity2.25m/s [id number] ATRIA Injection of contrast documented no interatrial shunt. Other Information Quality : Technically LimitedRhythm : Technically limited study due to body habitus. Conclusion LV EF IS 65% SLIGHTLY DILATED RV NORMAL VALVES NO EFFUSION NORMAL RVSP NORMAL RV FUNCTION
[2025-02-08 01:00] VITALS: BP_SYST 118; BP_SYST 120; BP_DIAS 62; BP_DIAS 65; PULSE 75; RESP 18; TEMP 97.9; O2SAT 90; O2SAT 95
[2025-02-08 05:00] VITALS: BP 100/69; PULSE 66; RESP 17; TEMP 97.5; O2SAT 95
[2025-02-08 08:00] VITALS: PULSE 67
[2025-02-08 09:00] VITALS: BP 118/77; PULSE 68; RESP 16; TEMP 98.1; O2SAT 93
[2025-02-08 12:24] VITALS: BP 118/77; PULSE 68
--- NOTE | 2025-02-08 12:59 | DVHDS2 ---
Discharge Summary Date of Admission Feb 06, 2025 at 20:30 Date of Discharge: Feb 08, 2025 Labs/Diagnostic Data: Laboratory Results Test 02/07/25 11:44 02/06/25 14:08 02/06/25 14:05 Urine Color Colorless (Yellow) Urine Clarity Clear (Clear) Urine pH 5.5 (5.0-9.0) Urine Specific [place] 1.008 (1.001-1.035) Urine Protein Negative (Negative) Urine Ketones Negative (Negative) Urine Blood Negative /uL (Negative) Urine Nitrite Negative (Negative) Urine Bilirubin Negative (Negative) Urine Urobilinogen Normal mg/dL (Negative) Urine Leukocyte Esterase Negative /uL (Negative) Urine RBC None seen /hpf (0 - 3) Urine Microscopic WBC 1 /HPF (0-3) Urine Squamous Epithelial Cells None seen /hpf (<5) Urine Bacteria None seen /hpf (None Seen) Urine Glucose Normal mg/dL (Normal) Urine Opiates Screen Neg (NEGATIVE) Urine Fentanyl Screen Neg (NEGATIVE) Urine Barbiturates Screen Neg (NEGATIVE) Urine Phencyclidine Screen Neg (NEGATIVE) Urine Amphetamines Screen Neg (NEGATIVE) Urine Benzodiazepines Screen Neg (NEGATIVE) Urine Cocaine Screen Neg (NEGATIVE) Urine Cannabinoids Screen Neg (NEGATIVE) White Blood Count 7.1 10^3/uL (4.4-10.8) Red Blood Count 5.65 10^6/uL (4.5-5.90) Hemoglobin 16.7 g/dL (13.5-17.5) Hematocrit 47.9 % (41.0-53.0) Mean Corpuscular Volume 84.8 fL (80.0-100.0) Mean Corpuscular Hemoglobin 29.5 pg (28.0-32.0) Mean Corpuscular Hemoglobin Concent 34.8 g/dL (32.0-36.0) Red Cell Distribution Width 14.2 % (11.8-14.3) Platelet Count 235 10^3/uL (140-450) Mean Platelet Volume 7.6 fL (6.9-10.8) Neutrophils (%) (Auto) 59.1 % (37.0-80.0) Lymphocytes (%) (Auto) 31.3 % (10.0-50.0) Monocytes (%) (Auto) 7.3 % (0.0-12.0) Eosinophils (%) (Auto) 1.8 % (0.0-7.0) Basophils (%) (Auto) 0.5 % (0.0-2.0) Neutrophils # (Auto) 4.2 10 ^3/uL (1.6-8.6) Lymphocytes # (Auto) 2.2 10 ^3/uL (0.4-5.4) Monocytes # (Auto) 0.5 10 ^3/uL (0-1.3) Eosinophils # (Auto) 0.1 10 ^3/uL (0-0.8) Basophils # (Auto) 0 10 ^3/uL (0-0.2) Nucleated Red Blood Cells 0.1 % Sodium Level 140 mmol/L (136-145) Potassium Level 4.0 mmol/L (3.5-5.1) Chloride Level 105 mmol/L (98-107) Carbon Dioxide Level 26 mmol/L (20-31) Anion Gap 9 (5-15) Blood Urea Nitrogen 16 mg/dL (9-23) Creatinine 0.89 mg/dL (0.700-1.30) Glomerular Filtration Rate Calc 103 mL/min (>90) BUN/Creatinine Ratio 18.0 (10.0-20.0) Serum Glucose 100 mg/dL (74-106) Hemoglobin A1c 5.8 % A1C (<5.7) Calcium Level 9.3 mg/dL (8.7-10.4) Total Bilirubin 0.8 mg/dL (0.2-1.0) Aspartate Amino Transferase (AST) 27 U/L (13-40) Alanine Aminotransferase (ALT) 34 U/L (7-40) Alkaline Phosphatase 84 U/L (46-116) Troponin I High Sensitivity 3 ng/L (</=54) Total Protein 7.4 g/dL (5.7-8.2) Albumin 4.5 g/dL (3.2-4.8) Triglycerides Level 166 mg/dL (< 150) Cholesterol Level 212 mg/dL (< 200) LDL Cholesterol 147 mg/dL (< 100) HDL Cholesterol 49 mg/dL (40-59) Thyroid Stimulating Hormone (TSH) 0.86 uIU/mL (0.55-4.78) Erythrocyte Sedimentation Rate 2 mm/hr (0-20) C-Reactive Protein High Sensitivity 0.22 mg/dL (<1.0) Other Laboratory Tests 02/06/25 14:08 Brief Hx & Hospital Course: Mr. Reynaldo Collazo is a 54-year-old male with past medical history of SVT (status post ablation, pacemaker), dyslipidemia and prediabetes came to the hospital due to transient lives of vision. Per patient, on Thursday upon waking up from sleep, he had lost his left eye vision for 20 minutes. He also reports of headache, and dizziness. Yesterday, he was checked by pmo consultant (per patient, normal study), subsequently he was referred to the hospital for further workup for possible TIA/stroke. Patient reports he has not seen a neurologists. Patient reports he has been having these symptoms for the past three months. He denies chest pain, shortness of breath, fever, any other motor/sensory deficits. He is admitted and had MRI of the brain did not show any acute pathology. Carotid duplex ultrasound and CT of the head did not show any acute pathology. By the time he came to the hospital his visual symptoms resolved. Able to see eval without any issues. Having had necessary workup and evaluations being normal it is felt he could be safely discharged home. However he is advised to follow up with the urologist in next couple of weeks to further evaluate and manage his symptoms as deemed appropriate. I have talked with the patient regarding his hospital diagnosis, treatment he received, imaging results, discharge medications and follow-up plan of care. He has verbalized understanding of these and agree with the care plan as outlined. Consults/Reason for consult REASON: visual distrubance ORDER NUMBER(s): [id number], ACCESSION NUMBER(s): [id number] EXAM: MRI BRAIN HEAD WO CONTRAST INDICATION: visual distrubance TECHNIQUE: Multiplanar, multisequence imaging of the brain without contrast. COMPARISON: CT CT HEAD NECK WITH CONT on DOS: 02/06/25 FINDINGS: [PARENCHYMA]: No acute infarct or hemorrhage. No mass effect or herniation. No abnormal susceptibility weighted artifact. [VENTRICLES]: No hydrocephalus. [EXTRA-AXIAL SPACES]: No extra-axial fluid collections. [FLOW VOIDS]: The flow voids are intact. [EXTRA-CRANIAL STRUCTURES]: The bony structures are intact. Visualized portions of the paranasal sinuses and mastoid air cells are essentially clear. IMPRESSION: 1. No MR evidence of an acute intracranial abnormality. ATED BY: MOLLY GONZALES MD DICTATED DATE/TIME: 02/07/25 1810 ORDER NUMBER(s): [id number], ACCESSION NUMBER(s): [id number] Carotid Duplex Date: 02/07/2025 12:42 PM Clinical History: Evaluate for carotid vessels disease Comparison: None Technique: Duplex Doppler evaluation of the extracranial carotid and vertebral arteries including color Doppler and spectral/pulsed waveform analysis was performed. Findings: Velocities and ratios within normal limits. Bilateral vertebral artery antegrade flow IMPRESSION: No hemodynamically significant stenosis noted in the right carotid system. No hemodynamically significant stenosis noted in the left carotid system. Reference: Radiology 2003; 229:[id number] ATED BY: MOLLY GONZALES MD DICTATED DATE/TIME: 02/07/25 1332 Operations or Procedures APPROVED REPORT EXAM: Two-dimensional and M-mode echocardiogram with Doppler, color Doppler and Bubble Study. Blood Pressure: 135/85 mmHg INDICATION CVA/TIA: RISK FACTORS Height: 5'8", Weight: 230 DIMENSIONS LVDd 4.6 (3.8-5.7cm) LA (2D) 3.8 (1.9-4.0cm) Aortic Root 3.8 (2.0- 3.7cm) LVDs 3.3 (2.5-4.0cm) LA (MM) (1.9-4.0cm) Aortic Cusp Exc 1.9 (1.5- 2.0cm) EF (%) 56.0 (55-70%) Rt. Atrium 4.0 (1.9-4.0cm) Asc. Aorta 3.1 cm IVSd 0.9 (0.7-1.1cm) RV (D) (1.8-2.4cm) PWd 0.8 (0.7-1.1cm) Mitral Valve Mitral Mitral Stenosis E wave 0.66m/s MV Mean GR. mmHg A wave 0.46m/s MV Peak GR. mmHg E/A ratio 1.4 2D MVA cm2 DECEL Time 223ms PRESS 1/2 Time ms Aortic Valve Aortic Valve Aortic Stenosis V1 0.78m/s AO Mean GR. 2mmHg V2 0.99m/s AO Peak GR. 4mmHg LVOT Diameter 2.2 (1.8-2.4cm) Doppler MARIO 2.99cm2 Pulmonic Valve V2 0.72m/s Tricuspid Valve TR Velocity 2.25m/s RVSP 23mmHg ATRIA Injection of contrast documented no interatrial shunt. Other Information Quality : Technically Limited Rhythm : Technically limited study due to body habitus. Conclusion LV EF IS 65% SLIGHTLY DILATED RV NORMAL VALVES NO EFFUSION NORMAL RVSP NORMAL RV FUNCTION SIGNED BY: VIOLETTE BURGOS MD SIGNED DATE/TIME: 02/07/252005 Condition at Discharge: Stable Final Diagnosis/Problems List Amurosis Fugax/blurred vision, vertigo Discharge Disposition: Home Discharge Instruct/Medications Diet: Consistent carbohydrate, Cardiac 2g Na,low cholest Activity: No Restrictions, As Tolerated Follow Up/Referral: PCP next week and referral to neurologist Dr.Sonia Gonzales for further evaluation Medications: Home medications Scheduled Aspirin (Aspirin 81 Low Dose), 81 MG PO DAILY Atorvastatin Calcium (Atorvastatin Calcium), 40 MG PO HS Flecainide Acetate (Flecainide Acetate), 0.5 TAB PO BID Metoprolol Tartrate (Lopressor), 25 MG PO BID Tramadol Hcl (Ultram), 1 TAB PO Q6HR Discontinued Medications Dexamethasone (Decadron), 8 MG PO DAILY Discharge Statement: "Patient was advised to return to the ER or call 911 if any headaches, dizziness, shortness of breath, chest pain, abdominal pain, bleeding, fevers, or worsening of medical condition. Patient was counseled about treatment plan, medications, possible side effects, patientverbalized understanding. All questions were answered to the best of my ability. This discharge took greater then 30 minutes in planning, reviewing documentation, counseling the patient, and discussing with other team members." ASSESSMENT ASSESSMENT Assessment Amurosis Fugax/blurred vision TAIWO CANTU MD Feb 08, 2025 12:59
[2025-02-08 13:00] VITALS: BP 120/76; PULSE 66; RESP 17; TEMP 98.1; O2SAT 96
--- NOTE | 2025-02-08 13:54 | DVHPNRES ---
Progress Note Date Seen: Feb 08, 2025 Resident Creating Document: REJI HOWARD RESIDENT Has the PT tested + for MRSA If YES, has PT been informed?: No Medical Necessity Reason Pt with a Central, PICC or Fol: No Subjective Review of Systems Today, the patient reports significant improvement in vision and resolution of dizziness. No current chest pain, palpitation, shortness of breath, syncope, focal weakness or sensory deficits. Vital signs are stable with BP 1 20 x 76 mmHg, heart rate in 60 to 70s, SpO2 of 98% on room air. Echocardiogram with bubble study EF of 65%, normal valves, normal RV, no effusion, no enteral atrial shunt. Pacemaker interrogation with normal function, no AFib, no AHREs, no mode switching abnormality BRAIN MRI, HEAD CT, CAROTID DUPLEX ALL ARE NEGATIVE. TELEMETRY SINUS RHYTHM, NO ATRIAL FIBRILLATION. Objective vital signs Vital Sign Date Time Temp Pulse Resp B/P (MAP) Pulse Ox O2 Delivery O2 Flow Rate FiO2 02/08/25 13:00 98.1 66 17 120/76 (91) 96 98.1 02/08/25 08:00 Room Air* 0 21 Total Intake and Output 02/07/25 02/07/25 02/08/25 15:00 23:00 07:00 Intake Total 860 ml 400 ml Output Total 200 ml Balance 660 ml 400 ml medications Current Medications Medications Dose Ordered Sig/Livia Route Start Time Stop Time Status Last Admin Dose Admin Atorvastatin Calcium 40 mg HS PO 02/06/25 22:00 02/07/25 21:29 40 MG Metoprolol Tartrate 25 mg BID PO 02/06/25 22:00 02/08/25 08:58 25 MG Aspirin 81 mg DAILY PO 02/07/25 10:00 02/08/25 08:58 81 MG Flecainide Acetate 50 mg Q12HR PO 02/06/25 22:00 02/08/25 08:58 50 MG Acetaminophen 650 mg Q6HPRN PRN PO 02/06/25 20:30 02/07/25 09:10 650 MG Famotidine 20 mg BID PO 02/06/25 22:00 02/08/25 08:58 20 MG Ondansetron HCl 4 mg Q6HP PRN IV 02/06/25 20:30 Docusate Sodium 100 mg BID PO 02/07/25 10:00 02/08/25 08:58 100 MG Meclizine HCl 25 mg TID PO 02/07/25 14:00 02/08/25 05:47 25 MG Examination * General: alert, no acute distress * Neck: no JVD, no carotid bruits * Cardiac: regular rate, normal S1/S2, no murmurs, rubs, or gallops; pacemaker site clean * Lungs: clear * Extremities: no edema * Neuro: non-focal, cranial nerves intact laboratory and microbiology Laboratory Tests 02/06/25 14:08 Test 02/06/25 14:08 Range/Units Serum Glucose 100 74-106 mg/dL Problem List/Assessment/Plan Problem List/Assessment/Plan Assessment 1. Transient monocular vision loss (amaurosis fugax) ocular TIA * Ophthalmology normal; CTA/MRI negative; carotid duplex normal. * Differential: cardioembolic source (though no AF, no shunt), retinal migraine, giant cell arteritis (ESR/CRP normal), small vessel ischemia. 2. Arrhythmia/Device management SSS s/p dual-chamber pacemaker * Pacemaker interrogation: no AF, no significant arrhythmias, normal pacing. * Sick sinus syndrome, Cardiac pacemaker in situ 3. History of SVT ablation (2021) 4. Hyperlipidemia uncontrolled 5. Prediabetes (HbA1c 5.8%) vascular risk factor. 6. History of type 2 DE (tachycardia-induced, 2021) stable. 7. Medication non-adherence likely contributor to risk. Plan/Recommendation Plan Rhythm / Device * Pacemaker interrogation completed: Normal, no AFib. * Continue flecainide 50 mg q12h and metoprolol tartrate 25 mg BID (monitor for bradycardia/hypotension). * Maintain K? ?4.0, Mg? ?2.0. * No anticoagulation at this time (no AF detected). Cerebrovascular Protection * Continue aspirin 81 mg daily. * Carotid duplex negative; bubble echo negative. * MRI brain negative. Lipids * Escalate to atorvastatin 80 mg nightly. * Repeat lipid panel in 68 weeks; consider ezetimibe if LDL >70. Prediabetes / Risk factors * Lifestyle modification counseling. * Outpatient endocrinology/PCP follow-up. Secondary Prevention * BP goal <130/80. Continue beta-isadora; add ACEi/ARB if needed. * Emphasize strict medication adherence and risk factor modification. Patient is hemodynamically stable, vision symptoms improved, and cleared from Cardiology standpoint. Thank you for the consult. Neurology evaluation is recommended for TIA symptoms and secondary prevention guidance. Case discussed in detail with the attending physician, including the clinical presentation, diagnostic workup, and comprehensive management plan. The patient was present for the discussion and demonstrated understanding of his condition and the proposed plan. Plan discussed with: Patient Visit Coding Cardiology RES Date of Service: Feb 08, 2025 Billing Provider: MASTER MEJIA Sr., MD Cardiology Common Codes: [id number] REJI HOWARD [facility] RESIDENT Feb 08, 2025 13:54
== END 2025-02-08 13:38 | disposition home or self-care (01) | DRG 123 ==
LOC: ER 13:20 → OVERFLOW 20:30 → TELE-EAST 23:44
PROVIDERS: ADMIT Nurse Practitioner Family; ATTEND Nurse Practitioner Family
PROC: 4B02XSZ Measurement of Cardiac Pacemaker, External Approach (ICD-10-PCS; principal; 2025-02-07)
DX: G45.3 Amaurosis fugax (principal); G45.9 Transient cerebral ischemic attack, unspecified; I10 Essential (primary) hypertension; R73.03 Prediabetes; E78.5 Hyperlipidemia, unspecified; Z87.891 Personal history of nicotine dependence; Z95.0 Presence of cardiac pacemaker; I25.2 Old myocardial infarction; Z83.3 Family history of diabetes mellitus; Z82.61 Family history of arthritis; Z82.3 Family history of stroke; Z91.148 Patient's other noncompliance with medication regimen for other reason; Z79.82 Long term (current) use of aspirin; Z88.0 Allergy status to penicillin; R42 Dizziness and giddiness
CPT/HCPCS: 36415; 70450; 70460; 70491; 70551; 80053; 80061; 80307; 81001; 83036; 84443; 84484; 85025; 85652; 86141; 93005; 93306; 93886; 97163; G0378